=== PATIENT | female | born 1930 | race Caucasian/White ===

== ENCOUNTER → 2016-11-27 | Outpatient (CLI) | payer MEDICARE, BC ==
[2016-11-27 13:19] VITALS: BP 185/105; PULSE 78; RESP 16; TEMP 97.8
--- NOTE | 2016-11-28 11:48 | P.PN ---
Subjective This is follow-up visit for this patient with a history of severe and chronic neck pain and low back pain secondary to lumbar degenerative disc disease, and lumbar spondylosis, and cervical spondylosis and cervical degenerative disc disease , and is currently on pain medications 1-fentanyl patch 25 g every 72 hours 2- oxycodone 10 every 6 hours 3-Neurontin 200 mg twice a day Patient denies any side effects of the medication, denies excessive drowsiness or sleepiness, denies suicidal ideation, and reports that the current pain medication is NOT helping To control the pain and improve activity of daily living Patient had a new MRI of the cervical spine showed postsurgical changes and cervical degenerative disc disease and cervical facet arthropathy Physical Examinations : 1-Constitutiona : Cooperative , not in acute distress . 2-HEENT : nech ; supple , no Lymphadenopathy , no Thyromegaly , normal thyroid size . eyes : no ptosis , no icterus, no photophobia . ENT : normal of hearing , normal oropharynx , no Thrush . 3- Respiratory : Chest clear to auscultations Bilaterally , no wheezing , no Rhonchi . 4- Cardiovascular : regular rate and rhythem , S1 , S2 , no S3 , no S4. 5- Gastrointestinal : abdomen soft no tenderness , bowel sounds positive all four quadrents , no organomegally . 6- Genitourinary : Defferred . 7- neurologic : Cranial nerve II to XII intact , no focal neurological deffecit . 8-psychatric : alert , oriented X 3 , appropriate affect , intact judgment and insight . 9-Lymphatic : no Lymphadenopathy . 10- musculoskeltal : exams of the cervical spine = motor strength normal bilateral upper extremities facet loading test cervical area positive. exams of the Lumber spine = motor strength lower extremities ,thigh and legs .3-4/5 deep tendon reflexes : normal Knee Jerk , normal ankle Jerk . lumber facet Loading Test positive strait leg raising test positive at 30 degree , RT ,LT , Fabere test positive RT and positive LT . 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 myelopathy , failed back surgery syndrome and lumbar area Chronic neck pain secondary to failed back surgery syndrome cervical area and cervical spondylosis with cervical facet arthropathy - diagnoses, prognosis, and treatment options including but not limited to physical therapy, surgical interventions, interventional therapies , and medication management including narcotics and adjuvant medication were discussed with the patient and all The questions answered -medication management = continual medication management from her primary care(Dr Brice ) -procedure= [place] patient to have diagnostic medial branch blocks cervical area C2/C3/C4/C5 bilaterally fits positive we'll proceed with the radiofrequency ablation of the medial branch cervical area, Objective - Vital Signs Vital signs: Vital Signs Temp 97.8 F 11/27/16 13:08 Pulse 78 11/27/16 13:08 Resp 16 11/27/16 13:08 BP 185/105 11/27/16 13:08 Pulse Ox Intake & Output 11/27/16 11/28/16 11/28/16 18:59 06:59 18:59 Weight 52.617 kg
== END | disposition home or self-care (01) ==
LOC: PNWHC3 12:50
PROVIDERS: ATTEND Specialist
DX: M51.36 Other intervertebral disc degeneration, lumbar region (principal); M47.816 Spondylosis without myelopathy or radiculopathy, lumbar region; M46.96 Unspecified inflammatory spondylopathy, lumbar region; M96.1 Postlaminectomy syndrome, not elsewhere classified; M47.892 Other spondylosis, cervical region; M46.92 Unspecified inflammatory spondylopathy, cervical region; M50.30 Other cervical disc degeneration, unspecified cervical region; Z79.899 Other long term (current) drug therapy
CPT/HCPCS: 99211

== ENCOUNTER 2017-01-01 07:12 | Day surgery (SDC) | payer MEDICARE, BC ==
[2016-12-28 11:06] VITALS: BMI 19.9
[~2017-01-01 07:12] MED LIST: LACTATED RINGERS 1,000 ML IV SCH
[2017-01-01] MEDS ORDERED: LIDOCAINE 1% 20 ML VIAL (10MG/ML) FOR IV START INTRADERMA ONE (07:23)
[2017-01-01 07:32] VITALS: RESP 16; TEMP 97.8
[2017-01-01] MEDS: LABETALOL SYRINGE 5 MG/ML IVP ONE ×2 (07:43→08:22)
[2017-01-01] MEDS ORDERED: MIDAZOLAM 2 MG/2 ML VIAL ONE (08:25)
[2017-01-01] MEDS ORDERED: fentaNYL (PF) 50 MCG/ML 2 ML AMP ONE (08:25)
[2017-01-01] MEDS ORDERED: BUPIVACAINE (PF) 0.5% 30 ML VIAL ONE (08:25)
[2017-01-01] MEDS ORDERED: IV FLUID CONTINUATION 1,000 ML IV ONE (08:57)
--- NOTE | 2017-01-01 08:57 | P.PCN ---
Date of Procedure: 01/01/17 Preoperative Diagnosis: Cervical postlaminectomy syndrome Cervicogenic headache Cervical spondylosis without myelopathy Postoperative Diagnosis: Same as above Procedure(s) Performed: Bilateral cervical medial branch block for C2, and C3 plus third occipital nerve block bilaterally under fluoroscopic guidance Anesthesia: MAC Surgeon: Renetta Azevedo Condition: stable Disposition: PACU Description of Procedure: The patient was seen in preop holding area consent was obtained. The patient is mostly in the back of her head in the occipital area and also the upper part of her neck the pain is worse on the right side than the left side. I reviewed her MRI and it looks like she has cervical fusion from C3 to C6 and over lordosisbetween C2 and C3. She was brought into the procedure room and placed in the supine position. Skin was prepped with DuraPrep and draped in a sterile manner. Lidocaine 1% was used to numb the skin up at the target points that were chosen as follows: C2 and C3 medial branches the target points were the center of the trapezoid shaped cervical articular pillars and for the third occipital nerve the target point was at the center of the joint line between C2 and C3. I used 25-gauge 3-1/2 inch Quincke spinal needle for this procedure and after contacting bone at the target points mentioned I injected 0.5 MLS of Marcaine 0.5% at each target point. I did not use steroids for this procedure. The patient was given only 1 mg of IV Versed and 50 g of fentanyl IV for sedation. She has poorly controlled hypertension and had to give her 10 mg of labetalol preoperatively I then asked her to take her oral antihypertensive medication at home . she's been out of control her anti HTN medications for 3 days now she states. The procedure will be repeated one more time however the patient states that she had RFA before which did not help her pain.
--- NOTE | 2017-01-01 09:06 | FL ---
FLUOROSCOPY 12 seconds of fluoroscopy time were utilized during Pain Injection. 7 images document the procedure.
[2017-01-01 09:21] VITALS: BP 179/99; PULSE 75
== END 2017-01-01 09:43 | disposition home or self-care (01) ==
LOC: ORPAIN 07:12
PROVIDERS: ATTEND Anesthesiology
DX: M96.1 Postlaminectomy syndrome, not elsewhere classified (principal); R51 Headache; M47.812 Spondylosis without myelopathy or radiculopathy, cervical region; I10 Essential (primary) hypertension; Z88.5 Allergy status to narcotic agent
CPT/HCPCS: 64490; 64491; 64492; J2250; J3010

== ENCOUNTER 2017-02-07 08:06 | Day surgery (SDC) | payer MEDICARE, BC ==
[2017-02-06 08:50] VITALS: BMI 20.7
[~2017-02-07 08:06] MED LIST changes: +LACTATED RINGERS 1,000 ML IV ONE; -LACTATED RINGERS 1,000 ML IV SCH
[2017-02-07 08:59] VITALS: RESP 16; TEMP 97.5
[2017-02-07] MEDS ORDERED: LIDOCAINE 1% 20 ML VIAL (10MG/ML) FOR IV START INTRADERMA ONE (09:19)
[2017-02-07] MEDS ORDERED: DEXAMETHASONE SOD PHOS (MDV) 100 MG/10 ML VIAL ONE (09:24)
[2017-02-07] MEDS ORDERED: fentaNYL (PF) 50 MCG/ML 2 ML AMP ONE (09:24)
[2017-02-07] MEDS ORDERED: MIDAZOLAM 2 MG/2 ML VIAL ONE (09:24)
[2017-02-07] MEDS ORDERED: BUPIVACAINE (PF) 0.5% 30 ML VIAL ONE (09:24)
[2017-02-07] MEDS ORDERED: IV FLUID CONTINUATION 1,000 ML IV ONE (10:04)
--- NOTE | 2017-02-07 10:08 | P.PCN ---
Date of Procedure: 02/07/17 Procedure(s) Performed: PREOPERATIVE DIAGNOSIS: Cervical Spondylosis with Facet Arthropathy.without myelopathy. Cervicogenic headache. Postlaminectomy pain syndrome and cervical area POSTOPERATIVE DIAGNOSIS: Same as preoperative diagnosis. PROCEDURES: Diagnostic bilateral C2-3 . C3-4 medial branch blocks, with fluoroscopic guidance. Bilateral third occipital nerve block under fluoroscopy guidance ANESTHESIA: Local with 1% lidocaine 6 ml ; IV sedation with Versed 1 mg and fentanyl 100 g. EBL: Minimal PROCEDURE INDICATION: The patient with neck pain secondary to cervical arthropathy unresponsive to more conservative treatments. PROCEDURE DESCRIPTION / TECHNIQUE: The patient was seen and identified in the preoperative area. Risks, benefits, complications, and alternatives were discussed with the patient, the patient agreed to proceed with the procedure and signed the consent. IV was started. Vital signs remained stable throughout the procedure. Patient was taken to the OR and time out was completed. The patient was placed in the prone position on the procedure table. A pillow was placed under the patients chest to increase the cervical interlaminar space. The cervical area was prepped and draped in the usual sterile fashion. Critical pause was taken. Vital signs were closely monitored during the procedure. Conscious sedation was used during the procedure to decrease patients anxiety. Using cross-table lateral fluoroscopy, the centroid of the trapezoid of right C2 , C3 was identified, marked, and localized with 1% lidocaine 1 ml at each level for skin and Sub Q infiltrations . Subsequently, a 22 G 2 spinal needle was advanced guided by fluoroscopy to the centroid of the trapezoid of Right C2 , C3, . [place] tip position was confirmed at the centroid of the trapezoids of Right C2 , C3 with anteroposterior fluoroscopy. Subsequently, 1 ml of preservative-free Bupivacaine 0.5% mixed with Dexamethasone 5 mg and half ml of the mixture was injected after negative aspiration for blood and CSF. [place] was then removed intact the same procedure was repeated at the left C2-3 , C3-4 levels. then after that , I did the right side third occipital nerve block ,by placing a 22-gauge Quincke-type needle ,at the center of the facet joint, that is formed between the C2 and C3 vertebral , and I placed the needle ,at the center of the joint, then after needle position confirmed with AP and lateral view , and after negative aspiration for heme, and CSF, and there was no paresthesia , half cc of Marcaine 0.5% injected after negative aspiration , and then the same procedure repeated for the left side ,and I did the left third occipital nerve, the needle was removed and the neck area cleaned and Band-Aid applied, and tolerated the procedure well ,without any acute complications. COMPLICATIONS: No acute complications. COMMENTS: DISPOSITION / PLANS: The patient was placed in a supine position and transferred to the recovery area in a stable condition for observation and was discharged from the recovery room after meeting discharge criteria. Home discharge instructions given to the patient by the staff. The patient was reexamined prior to discharge. The patient will schedule a follow up in the clinic in 2-4 weeks.
--- NOTE | 2017-02-07 10:20 | FL ---
Fluoroscopy HISTORY: Pain 17 seconds fluoroscopy time supplied to the referring clinician. 5 intraoperative C-arm images docum ent the procedure. See dictated report from anesthesia.
[2017-02-07 10:23] VITALS: BP 141/85; PULSE 84
== END 2017-02-07 10:43 | disposition home or self-care (01) ==
LOC: ORPAIN 08:06
PROVIDERS: ATTEND Specialist
DX: M47.812 Spondylosis without myelopathy or radiculopathy, cervical region (principal); M46.92 Unspecified inflammatory spondylopathy, cervical region; R51 Headache; M96.1 Postlaminectomy syndrome, not elsewhere classified; Z91.041 Radiographic dye allergy status
CPT/HCPCS: 99152; 99153; 64450; 64490; 64491; J2250; J3010; J1100

== ENCOUNTER 2017-03-26 06:09 | Day surgery (SDC) | payer MEDICARE, BC ==
[2017-03-23 08:40] VITALS: BMI 20.9
[~2017-03-26 06:09] MED LIST changes: -LACTATED RINGERS 1,000 ML IV ONE; +LACTATED RINGERS 1,000 ML IV SCH
[2017-03-26 07:24] VITALS: RESP 18; TEMP 97.8
[2017-03-26] MEDS ORDERED: DEXAMETHASONE SOD PHOS (MDV) 100 MG/10 ML VIAL ONE (07:50)
[2017-03-26] MEDS ORDERED: MIDAZOLAM 2 MG/2 ML VIAL ONE (07:50)
[2017-03-26] MEDS ORDERED: fentaNYL (PF) 50 MCG/ML 2 ML AMP ONE (07:50)
[2017-03-26] MEDS ORDERED: BUPIVACAINE (PF) 0.5% 30 ML VIAL ONE (07:50)
[2017-03-26] MEDS ORDERED: IV FLUID CONTINUATION 1,000 ML IV ONE (08:30)
--- NOTE | 2017-03-26 08:34 | P.PCN ---
Date of Procedure: 03/26/17 Preoperative Diagnosis: Postoperative Diagnosis: Procedure(s) Performed: PREOPERATIVE DIAGNOSIS:1- Cervical spondylosis with Facet Arthropathy without myelopathy. 2-cervicogenic headache POSTOPERATIVE DIAGNOSIS: Same as preoperative diagnoses PROCEDURES: Radiofrequency thermocoagulation, Right C2-3,and Right C3-4, medial branch with Fluroscopy [place]. Radiofrequency thermocoagulation right third occipital nerve with the fluoroscopy guidance. (total of 3 levels ) ANESTHESIA: Local with 1% lidocaine 3 ml ; IV sedation with fentanyl 100 mcg and Versed 1 mg . EBL: Minimal PROCEDURE INDICATION: The patient with neck pain secondary to cervical arthropathy who had more than 50% relief of her pain with previous diagnostic cervical medial branch block. PROCEDURE DESCRIPTION / TECHNIQUE: The patient was seen and identified in the preoperative area. Risks, benefits, complications, and alternatives were discussed with the patient, the patient agreed to proceed with the procedure and signed the consent. IV was started. Vital signs remained stable throughout the procedure. Patient was taken to the OR and time out was completed. The patient was placed in the prone position on the procedure table. A pillow was placed under the patients chest to increase the cervical interlaminar space. The cervical area was prepped and draped in the usual sterile fashion. Critical pause was taken. Vital signs were closely monitored during the procedure. Conscious sedation was used during the procedure to decrease patients anxiety. Using cross-table lateral fluoroscopy, the centroid of the trapezoid of Right C2 , C3 were identified, marked, and localized with 1% lidocaine. Subsequently , a 20 [id number] radiofrequency cannula with a 10-mm active tip was advanced guided by fluoroscopy to the centroid of the trapezoid of Right C2, C3 and third needl placed between the Right C2 and C3 vertebra (in the middle of the facet joints formed between Right C2 and C3 , ) . Needle tip position was confirmed at the centroid of the trapezoids of right C2 ,C3,and the third occipital nerve , with anteroposterior fluoroscopy. Each site then underwent sensory testing at 50 Hz and 0 to 1 volt and motor testing at 2 Hz and 0 to 3 volt with local stimulation, but no radicular symptoms down the arm. Thereafter Right C2 ,C3, and the right third occipital nerve sites underwent radiofrequency thermocoagulation at 80 degrees celsius for 90 seconds after injecting 0.5 ml of PF lidocaine 1%. After thermocoagulation, 1 ml of the block solution containing Dexamethasone 10 mg mg and 3 mL of preservative-free Marcaine 0.5% was injected at the Right C2 ,C3,and righ third occipital nerve levels after negative aspiration of CSF and blood and with no paresthesias. Cannulas were retracted while injecting lidocaine 1% until the needle is out. Skin was cleansed and bandages were applied. COMPLICATIONS: No acute complications. COMMENTS: DISPOSITION / PLANS: The patient was placed in a supine position and transferred to the recovery area in a stable condition for observation and was discharged from the recovery room after meeting discharge criteria. Home discharge instructions given to the patient by the staff. The patient was reexamined prior to discharge. The patient will schedule a follow up in the clinic in 2-4 weeks. Implants: Indications for Procedure: Operative Findings: Description of Procedure:
--- NOTE | 2017-03-26 08:52 | FL ---
Fluoroscopy HISTORY: Pain 11 seconds fluoroscopy time supplied to the referring clinician. 2 intraoperative C-arm images docum ent the procedure. See dictated report from anesthesia.
[2017-03-26 08:56] VITALS: BP 136/77; PULSE 77
== END 2017-03-26 09:17 | disposition home or self-care (01) ==
LOC: ORPAIN 06:09
PROVIDERS: ATTEND Specialist
DX: M47.812 Spondylosis without myelopathy or radiculopathy, cervical region (principal); M46.92 Unspecified inflammatory spondylopathy, cervical region; I10 Essential (primary) hypertension; Z91.041 Radiographic dye allergy status
CPT/HCPCS: 64640; 64633; 64634; 99152; 99153; J2250; J3010; J1100

== ENCOUNTER → 2017-05-14 | Outpatient (CLI) | payer MEDICARE, BC ==
[2017-05-14 11:26] VITALS: RESP 18
[2017-05-14 11:29] VITALS: BP 131/78; PULSE 77; TEMP 98.4
--- NOTE | 2017-05-14 11:48 | P.PN ---
Progress Note - Text Patient returns for followup for chronic neck pain with radiation to the head. Patient recently underwent right cervical RFA, which provided some relief for interval since procedure, and patient is now requesting procedures for her low back, where she has had previous laminectomy and hardware placement. Patient continues on fentanyl patch and oxyIR medications for pain from PCP with good relief. Patient denies adverse drug effects from medications. Today, pt denies new-onset weakness, bowel/bladder incontinence, or any other signs or symptoms of cauda equina syndrome. There are no signs of acute intoxication, and no indications of medication diversion or overuse. In addition to above, 13-point review of systems is also negative for chest pain , shortness of breath, changes in vision, changes in hearing, new onset weakness , abdominal pain, diarrhea, extreme fatigue, malaise, fever, skin changes, homicidal or suicidal ideation, or bowel or bladder incontinence. Vital Signs: Reviewed in EMR Gen: WDWN, AAOx3, NAD HEENT: NCAT, EOMI, hearing grossly normal Pulm: resp unlabored Abd: soft, NT, ND Neck: supple, trachea midline ROM in flexion cervical spine: reduced ROM in extension cervical spine: reduced Cervical paravertebral tenderness: + Cervical Facet tenderness: + L > R Spurling's: neg Upper extremity: decreased block hacker strength secondary to pain LUE 4/5 ROM lumbar spine: reduced in both flexion/extension +facet loading bilateral, L > R Neuro: CN II-XII grossly intact, muscle strength lower extremities PRESERVED Imaging: Reviewed in EMR Assessment: 1. cervical spondylosis without myelopathy 2. cervicogenic headache 3. chronic pain syndrome 4. lumbar spondylosis 5. lumbar PLPS Plan: 1. Explanation: Opioid and psychological risk scores were reviewed. Diagnoses , prognoses, and multiple treatment options including but not limited to physical therapy, interventional therapies, adjuvant medical therapies, narcotic medication therapies, and surgery were discussed with the patient and all questions were answered to the patient's satisfaction. 2. Opioid agreement: no opioids prescribed today 3. Counseling: The patient was counseled extensively on BODY MASS INDEX, EXERCISE. Specifically, the patient was instructed regarding the importance of weight control, and exercise in the context of both chronic pain and overall health. 4. Procedures: none for now 5. Consultations: None 6. Investigations: CT scan lumbar spine without contrast (patient previously had MRI with contrast and has had significant weakness in her legs since); this may not have caused the issue, but patient does not want any more contrast. 7. Medications: none for now 8. Disposition: f/u for re-eval 6 weeks PQRS measures: 1-Patient's medications are documented in the chart. 2-Tobacco use is negative 3-Patient has had a pneumococcal vaccine. 4-Advanced care planning discussed, patient unable to give. 5-Opioid contract NOT signed with the patient. 6-Pain positive, follow-up visit or procedure scheduled 7-Patient's blood pressure measured and documented, and WNL. 8-Patient's weight was measured, and body mass index within the normal limits 9-Patient WAS NOT identified as an unhealthy alcohol user.
== END ==
LOC: PNWHC3 10:52
PROVIDERS: ATTEND Anesthesiology
DX: M47.812 Spondylosis without myelopathy or radiculopathy, cervical region (principal); M47.816 Spondylosis without myelopathy or radiculopathy, lumbar region; R51 Headache; G97.1 Other reaction to spinal and lumbar puncture; Z79.891 Long term (current) use of opiate analgesic
CPT/HCPCS: 99211

== ENCOUNTER → 2017-05-18 | Outpatient (CLI) | payer MEDICARE, BC ==
--- NOTE | 2017-05-18 08:46 | CT ---
EXAMINATION TYPE: CT lumbar spine wo con DATE OF EXAM: 05/18/2017 COMPARISON: NONE HISTORY: 87-year-old female with post laminectomy syndrome TECHNIQUE: Contiguous axial scanning of the lumbar spine without IV contrast. Coronal and sagittal re constructions performed. CT DLP: 375.9 mGycm Automated exposure control for dose reduction was used. FINDINGS: Exam limitations due to osteopenia and extensive streak and beam hardening artifact from the patient' s orthopedic hardware. Postsurgical changes of L1-S1 posterior fusion. There are corresponding laminectomies and a satisfact ory lateral osseous fusion. This involves a fixed levoconvex scoliosis. There is still some joint seen along the posterior elemen ts at L5-S1 but there are some areas of bony bridging present. Of note, the right S1 transpedicular screw extends through the right lateral aspect of the L5-S1 disc interspace otherwise, the orthopedic hardware appears largely uncomplicated. There is severe disc/endplate degenerative change above the fusion at T12-L1 with posterior disc oste ophyte complex and essentially dated kyphosis here. There is mild right neural foraminal stenosis wit hout significant spinal canal stenosis. At L1-L2, there is dorsal decompression of the thecal sac without significant neural foraminal stenos is. At L2-L3, there is dorsal decompression of the thecal sac with minimal bilateral inferior neuroforami nal narrowing. At L3-L4, there is dorsal decompression of the thecal sac with minimal inferior neural foraminal narr owing on the left and mild neural foraminal stenosis on the right. At L4-L5, there is dorsal decompression of the thecal sac but with moderate bilateral neuroforaminal stenosis. Disc osteophyte complex may abut both exiting L4 nerve roots. At L5-S1, dorsal decompression of the thecal sac with severe left and moderate to severe right neural foraminal stenosis. There may be impingement of both exiting L5 nerve roots. IMPRESSION: 1. STATUS POST L1-S1 POSTERIOR AND LATERAL OSSEOUS FUSION WITH LAMINECTOMIES. 2. THERE IS A FIXED LEVOCONVEX SCOLIOSIS SECONDARY TO THE FUSION. NOTE THAT THE RIGHT S1 TRANSPEDICUL AR SCREW EXTENDS THROUGH THE RIGHT LATERAL L5-S1 DISC SPACE. THERE IS PARTIAL BONY ANKYLOSIS ALONG TH E POSTERIOR ELEMENTS AT L5-S1. 3. SEVERE DISC/ENDPLATE DEGENERATIVE CHANGE ABOVE THE FUSION AT T12-L1 BUT WITH ONLY MINIMAL INFERIOR FORAMINAL NARROWING ON THE RIGHT HERE. 4. AT L4-L5, THERE IS MODERATE BILATERAL NEURAL FORAMINAL STENOSIS AND DISC OSTEOPHYTE COMPLEX MAY AB UT BOTH EXITING L4 NERVE ROOTS. 5. L5-S1, THERE IS SEVERE LEFT AND MODERATE TO SEVERE RIGHT NEUROFORAMINAL STENOSIS WITH POSSIBLE IMP INGEMENT OF BOTH EXITING L5 NERVE ROOTS.
== END | disposition home or self-care (01) ==
LOC: RADCTMAIN 07:43
DX: M99.73 Connective tissue and disc stenosis of intervertebral foramina of lumbar region (principal); M25.78 Osteophyte, vertebrae; M41.86 Other forms of scoliosis, lumbar region; M43.27 Fusion of spine, lumbosacral region; Z98.890 Other specified postprocedural states; Z98.1 Arthrodesis status
CPT/HCPCS: 72131

== ENCOUNTER → 2017-07-02 | Outpatient (CLI) | payer MEDICARE, BC ==
[2017-07-02 14:22] VITALS: BP 132/88; PULSE 78; RESP 16; TEMP 98.3
--- NOTE | 2017-07-02 14:41 | P.PN ---
Progress Note - Text Patient returns for followup for chronic neck pain with radiation to the head and got good relief from previous cervical RFA. Patient recently underwent CT scan of L-spine, results below. Patient continues on fentanyl patch and oxyIR medications for pain from PCP with good relief. Patient denies adverse drug effects from medications. Today, pt denies new-onset weakness, bowel/bladder incontinence, or any other signs or symptoms of cauda equina syndrome. There are no signs of acute intoxication, and no indications of medication diversion or overuse. In addition to above, 13-point review of systems is also negative for chest pain , shortness of breath, changes in vision, changes in hearing, new onset weakness , abdominal pain, diarrhea, extreme fatigue, malaise, fever, skin changes, homicidal or suicidal ideation, or bowel or bladder incontinence. Vital Signs: Reviewed in EMR Gen: WDWN, AAOx3, NAD HEENT: NCAT, EOMI, hearing grossly normal Pulm: resp unlabored Abd: soft, NT, ND Neck: supple, trachea midline ROM lumbar spine: reduced in both flexion/extension +facet loading bilateral, L > R neg SLR Neuro: CN II-XII grossly intact, muscle strength lower extremities reduced secondary to opain Imaging: Computed tomography scan the lumbar spine demonstrates posterior changes of L1 to S1 posterior fusion with corresponding laminectomies and decompression. There is a fixed levoconvex scoliosis. At the L2-L3 level there is dorsal decompression of the thecal sac with minimal bilateral inferior neural foraminal narrowing. The L3-L4 level there is a similar dorsal decompression of thecal sac with minimal neural foraminal narrowing. At the L4- L5 level there is dorsal decompression of thecal sac with moderate bilateral neural foraminal stenosis. There is a disc osteophyte complex that may be abutting both the exiting L4 nerve roots. At the L5-S1 level there is dorsal decompression of thecal sac with severe left and moderate to severe right neural foraminal stenosis. There may be impingement of both exiting L5 nerve roots. Assessment: 1. cervical spondylosis without myelopathy 2. cervicogenic headache 3. chronic pain syndrome 4. lumbar spondylosis 5. lumbar PLPS Plan: 1. Explanation: Opioid and psychological risk scores were reviewed. Diagnoses , prognoses, and multiple treatment options including but not limited to physical therapy, interventional therapies, adjuvant medical therapies, narcotic medication therapies, and surgery were discussed with the patient and all questions were answered to the patient's satisfaction. 2. Opioid agreement: no opioids prescribed today 3. Counseling: The patient was counseled extensively on BODY MASS INDEX, EXERCISE. Specifically, the patient was instructed regarding the importance of weight control, and exercise in the context of both chronic pain and overall health. 4. Procedures: caudal IGLESIA 5. Consultations: None 6. Investigations: none 7. Medications: none for now 8. Disposition: f/u for re-eval 6 weeks PQRS measures: 1-Patient's medications are documented in the chart. 2-Tobacco use is negative 3-Patient has had a pneumococcal vaccine. 4-Advanced care planning discussed, patient unable to give. 5-Opioid contract NOT signed with the patient. 6-Pain positive, follow-up visit or procedure scheduled 7-Patient's blood pressure measured and documented, and WNL. 8-Patient's weight was measured, and body mass index within the normal limits 9-Patient WAS NOT identified as an unhealthy alcohol user.
== END | disposition home or self-care (01) ==
LOC: PNWHC3 13:58
PROVIDERS: ATTEND Anesthesiology
DX: M47.812 Spondylosis without myelopathy or radiculopathy, cervical region (principal); M47.816 Spondylosis without myelopathy or radiculopathy, lumbar region; G89.4 Chronic pain syndrome; G97.1 Other reaction to spinal and lumbar puncture; R51 Headache
CPT/HCPCS: 99211

== ENCOUNTER → 2018-03-25 | Outpatient (CLI) | payer MEDICARE, BC ==
[2018-03-25 13:24] VITALS: BP 163/115; PULSE 92; RESP 16
--- NOTE | 2018-03-25 16:10 | P.PAINPG ---
Subjective Progress Note Date: 03/25/18 This is a follow-up visit for this 87 years old female with a chronic history of severe neck pain and low back pain, treated her in the past for her neck pain we did radiofrequency ablation of the medial branch cervical area, the procedure was done more than a year ago, currently she is complaining of severe low back pain which is interfering with her quality of life and the pain is constant and increases with any activity, description and history of lumbar laminectomy and fusion surgery done more than 5 years ago, and she continued to have severe low back pain with radiation to the lower extremity, she had computed tomography scan of the lumbar spine done last year, and should it showed severe degenerative disc disease , and sign of laminectomy surgery, currently she is wheelchair-bound and she had no ability to ambulate because of intensity of the pain Objective - Vital Signs Vital signs: Vital Signs Temp Pulse 92 03/25/18 13:20 Resp 16 03/25/18 13:20 BP 163/115 03/25/18 13:20 Pulse Ox 98 03/25/18 13:20 Intake & Output 03/24/18 03/25/18 03/25/18 18:59 06:59 18:59 Weight 55.338 kg - Exam Physical Examinations : 1-Constitutiona : Cooperative , not in acute distress . 2-HEENT : nech ; supple , no Lymphadenopathy , normal thyroid size . eyes : no ptosis , no icterus , no photophobia . ENT : normal of hearing , normal oropharynx , no Thrush . 3- Respiratory : Chest clear to auscultations Bilaterally , no wheezing , no Rhonchi . 4- Cardiovascular : regular rate and rhythem , S1 , S2 , no S3 , no S4. 5- Gastrointestinal : abdomen soft no tenderness , bowel sounds , no organomegally . 6- Genitourinary : Defferred . 7- neurologic : Cranial nerve II to XII intact , no focal neurological deffecit . 8-psychatric : alert , oriented X 3 , appropriate affect , intact judgment and insight . 9-Lymphatic : no Lymphadenopathy . 10- musculoskeltal : cervical spine = motor stregnth in the deltoid and biceps, motor stregnth biceps and the wrist extensors (C6) . motor stregnth in the triceps muscle . deep tendon reflexes normal at the biceps Right , Left normal at the brachioradia Right , Left Normal at the triceps Right ,Left cervical facet loading test positive. , Lumber spine = normal moter stegnth lower extremities ,thigh and legs .3/5 deep tendon reflexes : normal Knee Jerk , normal ankle Jerk . 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 Patient will be good candidate to have caudal epidural steroid injection with lysis of epidural adhesions Patient currently on the fentanyl patch 75 g every 72 hours and she is on OxyContin 10 mg every 8 hours, a day he denies any side effects of the medication but she up with the current medication is not helping enough to control her pain I recommend to start patient on Lyrica 25 mg twice a day to be increased as tolerated Time with Patient: Less than 30 PQRS Measure Charge Sheet Measure #130: Documentation of Current Meds in Medical Chart: Patient's medications documented in chart Measure #226: Tobacco Use: Screen & Cessation Intervention: Pt not a tobacco user Measure #111: Pneumonia Vaccination: Pneumococcal vaccine administered or previously received Measure #47: Advance Care Plan: Advance care planning discussed & documented, plan or surrogate given Measure #412: Opioid Treatment Agreement: No documentation of signed opioid treatment agreement Measure #408: Opioid Therapy Follow-up Evaluation: Patient had NO f/u eval minimum every 3 months during opioid therapy Measure #317: Preventitive Care & Scrn High Bld Press & F/U: Pre-hypertensive or hypertensive BP documented, pt will f/u with PCP Measure #128: Body Mass Index (BMI) Screening & Follow-up: BMI documented ABOVE normal parameters - f/u documented Measure #131: Pain Assessment & Follow-up: Pain positive & plan documented, Follow-up scheduled Measure #431: Unhealthy Alcohol Use Preventative Care & Scrn: Patient not identified as an unhealthy alcohol user PQRS Narrative: Smoking Status Former smoker Do You Want the Pneumonia Vaccine Up to Date Vaccine AT THIS TIME? Blood Pressure 163/115 Pain Intensity [Lower Back] 8 Scale Used Numeric (1 - 10) Hx Alcohol Use (MH) Yes Home Medications: Ambulatory Orders Cholecalciferol [Vitamin D3] 1,000 unit PO WEEKLY 03/05/15 Levothyroxine Sodium [Synthroid] 100 mcg PO DAILY 12/10/14 Olmesartan [Benicar] 20 mg PO DAILY 12/10/14 fentaNYL 75MCG/HR PATCH [Duragesic 75Mcg/Hr Patch] 1 patch TRANSDERM Q72H Ascorbic Acid [Vitamin C] 500 mg PO DAILY 06/14/16 Calcium Carbonate/Vitamin D3 [Calcium 600-Vit D3 200 Tablet] 1 each PO DAILY 04/22 oxyCODONE HCL [OxyCONTIN] 10 mg PO Q8H PRN 11/27/16 Ergocalciferol [Vitamin D2] 50,000 unit PO Q7D 12/17/17 Pregabalin [Lyrica] 25 mg PO BID 03/25/18 Controlled Substance Measures - Controlled Substance Measures Is patient prescribed a controlled substance at discharge?: No When asked, does pt state using other controlled substances?: No If prescribed controlled substance>3 days was MAPS reviewed?: No If Rx opioid, was Start Talking consent form obtained?: No If opioid is for acute pain is fill amount 7 days or less?: No Was information provided regarding opioid addiction?: No
== END | disposition home or self-care (01) ==
LOC: PNWHC3 12:08
PROVIDERS: ATTEND Specialist
DX: G89.29 Other chronic pain (principal); M96.1 Postlaminectomy syndrome, not elsewhere classified; M47.812 Spondylosis without myelopathy or radiculopathy, cervical region; M54.2 Cervicalgia; Z87.891 Personal history of nicotine dependence; Z79.899 Other long term (current) drug therapy; Z79.891 Long term (current) use of opiate analgesic
CPT/HCPCS: 99211

== ENCOUNTER 2018-04-01 08:29 | Day surgery (SDC) | payer MEDICARE, BC ==
[2018-03-26 11:31] VITALS: BMI 20.9
[2018-04-01] MEDS ORDERED: LACTATED RINGERS 1,000 ML IV ONE (08:59)
[2018-04-01 09:08] VITALS: TEMP 98
[2018-04-01] MEDS ORDERED: LIDOCAINE 1% 20 ML VIAL (10MG/ML) FOR IV START INTRADERMA ONE (09:08)
--- NOTE | 2018-04-01 09:51 | P.OP ---
Date of Procedure: 04/01/18 Surgeon: Bert Reyes Description of Procedure: Procedure= caudal epidural steroid injection with lysis of epidural adhesions under fluoroscopy guidance. Preoperative diagnosis=1-failed back surgery syndrome lumbar area. 2 lumbar degenerative disc disease 3-lumbar radiculopathy Postoperative diagnosis= same Surgeon: Bert Reyes MD Indication for procedure: This is a pleasant 88 showed woman with a history of intractable back pain and leg pain. She's had previous back surgery. She presents today for caudal epidural steroid injection with lysis of adhesions. Anesthesia= IV sedation with 1 mg Versed and 50 mcg fentanyl , and local infiltration with lidocaine 1% 3 mL for skin and subcutaneous tissue infiltrations. Fluoroscopy time= 3 seconds Description of the procedure= procedure risk and benefits discussed with the patient, including but not limited to risk of infection and bleeding and ALLERGIC reaction to the medication and no complete pain relief discussed with the patient and he, she agreed with preceding. patient taken to the operating room, placed in prone position standard monitors applied, then after induction of anesthesia the lumbar and the caudal Area prepped with chlorhexidine X3 , then the under fluoroscopy guidance, local infiltration of the skin and subcu tissuel at the caudal hiatus area, then a 17-gauge Touhy needle advanced slowly under fluoroscopy and passed through the cauda hiatus and advanced to the epidural space, there was positive loss of resistance to normal saline, no heme, no paresthesia, no cerebrospinal fluid, then after negative aspiration Omnipaque 180 mg per mL and 3 mL injected that showed possible spread in the epidural space, no intrathecal spread, then 22 daniel Racz catheter advanced slowly through the needle up to L 4-5 interlaminar space , and I was able to break the scar tissue and then inject a mixture of lidocaine 1% 2 mL +4 mL of preservative-free normal saline +40 mg of depomedrol mixed together , and injected epidurally after negative aspiration patient tolerated the procedure well without any complication and patient will follow up with up in the pain clinic within 3 weeks.
[2018-04-01 10:00] VITALS: RESP 16
[2018-04-01] MEDS ORDERED: IV FLUID CONTINUATION 1,000 ML IV ONE (10:05)
[2018-04-01 10:15] VITALS: BP 153/91; PULSE 75
--- NOTE | 2018-04-01 11:24 | FL ---
Fluoroscopy HISTORY: Pain 5 seconds fluoroscopy time supplied to the referring clinician. 1 intraoperative C-arm images docume nt the procedure. See dictated report from anesthesia.
== END 2018-04-01 10:44 | disposition home or self-care (01) ==
LOC: ORPAIN 08:29
PROVIDERS: ATTEND Pain Medicine Pain Medicine
DX: G89.29 Other chronic pain (principal); M96.1 Postlaminectomy syndrome, not elsewhere classified; M51.16 Intervertebral disc disorders with radiculopathy, lumbar region; G96.12 Meningeal adhesions (cerebral) (spinal); M47.812 Spondylosis without myelopathy or radiculopathy, cervical region; Z87.891 Personal history of nicotine dependence; Z79.891 Long term (current) use of opiate analgesic; Z79.899 Other long term (current) drug therapy; Z91.041 Radiographic dye allergy status; Z79.890 Hormone replacement therapy
CPT/HCPCS: 62264; J2250; J1030; J3010

== ENCOUNTER 2018-05-14 08:56 | Day surgery (SDC) | payer MEDICARE, BC ==
[2018-05-07 09:03] VITALS: BMI 20.9
[2018-05-14 09:26] VITALS: RESP 16; TEMP 97.9
--- NOTE | 2018-05-14 10:07 | P.PCN ---
Date of Procedure: 05/14/18 Surgeon: Renetta Azevedo Pathology: none sent Condition: stable Disposition: PACU Description of Procedure: PREOP DIAGNOSIS: Lumbar postlaminectomy syndrome. POSTOP DIAGNOSIS: Lumbar postlaminectomy syndrome. PROCEDURE: Caudal epidural steroid injection with epidurolysis and epidurogram under fluoroscopic guidance ANESTHESIA: Local with 1% lidocaine; IV moderate conscious sedation EBL: Minimal. PROCEDURE INDICATION: The patient with post-laminectomy syndrome with low back pain and radiculopathy radiating down in both legs, here for a caudal epidural steroid injection with epidurolysis. PROCEDURE DESCRIPTION: The patient was seen in the preoperative holding area consent was obtained then he was brought into the procedure room and placed in prone position. Skin was prepped with ChloraPrep and draped in a sterile manner. Lidocaine 1% was used to numb the skin up at the target point that was chosen as follows: The lateral view of fluoroscopy was used to identify the sacral hiatus and then after localizing the skin with lidocaine 1% I used 18- gauge epidural needle with a plastic sheath to go through the sacral hiatus and into the sacral canal and then injected 1 mL of Omnipaque for verification of needle tip position. After that the metal core of the needle was taken out and the plastic sheath was kept in the sacral canal. Then Racz catheter was introduced through the plastic sheath and into the epidural space at the sacral canal using the AP view of fluoroscopy up to L5-S1 level then I injected 2 MLS of Omnipaque which showed limited spread in the epidural space and after few back and forth movements of the Racz catheter I was able to introduce the needle one level higher to the L4-5 level and then there was more spread of the Omnipaque after injecting 3 more mils of Omnipaque on the AP view of fluoroscopy. After that I injected 40 mg of Kenalog +2 MLS of Ropivacaine 0.5% +7 MLS of preservative-free normal saline to a total volume of 10 MLS in the epidural space. Patient tolerated procedure well. Of note: COMPLICATIONS: None. DISPOSITION / PLANS: The patient was placed in a supine position and transferred to the recovery area in a stable condition for observation and was discharged from the recovery room after meeting discharge criteria. Home discharge instructions given to the patient by the staff. The patient was reexamined prior to discharge. The patient will schedule a follow up in the clinic in 2-4 weeks.
[2018-05-14] MEDS ORDERED: IV FLUID CONTINUATION 1,000 ML IV ONE (10:22)
--- NOTE | 2018-05-14 10:37 | FL ---
Fluoroscopy HISTORY: Pain 14 seconds fluoroscopy time supplied to the referring clinician. 2 intraoperative C-arm images docum ent the procedure. See dictated report from anesthesia.
[2018-05-14 10:40] VITALS: BP 169/99; PULSE 77
== END 2018-05-14 10:55 | disposition home or self-care (01) ==
LOC: ORPAIN 08:56
PROVIDERS: ATTEND Anesthesiology
DX: M96.1 Postlaminectomy syndrome, not elsewhere classified (principal); I10 Essential (primary) hypertension; Z91.041 Radiographic dye allergy status
CPT/HCPCS: 62264; J2250; J3301; J3010; Q9966; C1894; 99152

== ENCOUNTER 2020-08-01 09:34 | Emergency (ER) | payer MEDICARE ==
[2020-08-01 09:42] VITALS: RESP 18
[2020-08-01] MEDS ORDERED: DOCUSATE 283 MG/5 ML ENEMA RECTAL STA (10:07)
--- NOTE | 2020-08-01 10:26 | ED ---
Abdominal Pain HPI - General Chief Complaint: Abdominal Pain Stated Complaint: Constipation Time Seen by Provider: 08/01/20 09:54 Source: patient, EMS, RN notes reviewed Mode of arrival: EMS Limitations: no limitations - History of Present Illness Initial Comments: This is an 89-year-old female presents emergency Department with chief complaint constipation. Patient states she's not been able to go in several days. Patient states she feels a stool at her rectum. Patient states that she is on chronic pain meds. Patient states that she has no fevers or chills she states she only has pain in her rectum. Patient states she has known hemorrhoids. No dysuria no hematuria. Patient offers no other complaints. - Related Data Home Medications Medication Instructions Recorded Confirmed Levothyroxine Sodium [Synthroid] 100 mcg PO DAILY 12/10/14 06/18/18 Olmesartan [Benicar] 20 mg PO DAILY 12/10/14 06/18/18 fentaNYL 75MCG/HR PATCH [Duragesic 1 patch TRANSDERM Q72H 12/10/14 06/18/18 75Mcg/Hr Patch] Ascorbic Acid [Vitamin C] 500 mg PO DAILY 06/14/16 06/18/18 oxyCODONE HCL [OxyCONTIN] 10 mg PO Q8H PRN 11/27/16 06/18/18 Pregabalin [Lyrica] 25 mg PO BID 03/25/18 06/18/18 Allergies Allergy/AdvReac Type Severity Reaction Status Date / Time MRI Contrast AdvReac Severe could not Uncoded 06/18/18 12:21 walk, very dry skin Review of Systems ROS Statement: Those systems with pertinent positive or pertinent negative responses have been documented in the HPI. ROS Other: All systems not noted in ROS Statement are negative. Past Medical History Past Medical History: GERD/Reflux, Hypertension, Osteoarthritis (OA), Thyroid Disorder Additional Past Medical History / Comment(s): CONSTIPATION, NECK AND BACK PAIN. varicose veins, gadolinium toxicity. History of Any Multi-Drug Resistant Organisms: None Reported Past Surgical History: Back Surgery, Hernia Repair, Joint Replacement, Tonsillectomy Additional Past Surgical History / Comment(s): rt knee replacement ,PAIN CLINIC PROCEDURES. [place] cataracts Past Anesthesia/Blood Transfusion Reactions: No Reported Reaction Past Psychological History: No Psychological Hx Reported Smoking Status: Never smoker Past Alcohol Use History: Daily Past Drug Use History: None Reported - Past Family History Sister(s) Family Medical History: Cancer Additional Family Medical History / Comment(s): LUNG CANCER General Exam Limitations: no limitations General appearance: alert, in no apparent distress Head exam: Present: atraumatic, normocephalic, normal inspection Neck exam: Present: normal inspection. Absent: tenderness, meningismus, lymphadenopathy Respiratory exam: Present: normal lung sounds bilaterally. Absent: respiratory distress, wheezes, rales, rhonchi, stridor Cardiovascular Exam: Present: regular rate, normal rhythm, normal heart sounds. Absent: systolic murmur, diastolic murmur, rubs, gallop, clicks GI/Abdominal exam: Present: soft, normal bowel sounds. Absent: distended, tenderness, guarding, rebound, rigid Rectal exam: Present: fecal impaction, hemorrhoids. Absent: normal inspection Course Vital Signs 08/01/20 09:36 Temperature 98.2 F Pulse Rate 91 Respiratory 18 Rate Blood Pressure 141/91 O2 Sat by Pulse 97 Oximetry Procedures - Rectal Disimpaction Consent Obtained: verbal consent Indication: fecal impaction Procedural Sedation: No Sedation/Analgesia: none Technique: manual disimpaction with gloved finger Result: significant stool output Complications: none Patient Tolerated Procedure: well, no complications Medical Decision Making - Medical Decision Making 89-year-old female presented for constipation. Patient noted to have large fecal impaction on exam. Patient was disimpacted and was able to pass a large amount of stool patient's symptoms have resolved. Disposition Clinical Impression: Constipation, Fecal impaction in rectum Disposition: HOME SELF-CARE Condition: Stable Instructions (If sedation given, give patient instructions): Constipation (ED) Additional Instructions: Please return to the Emergency Department if symptoms worsen or any other concerns. Is patient prescribed a controlled substance at d/c from ED?: No Referrals: Diamond Brice MD [Primary Care Provider] - 1-2 days Time of Disposition: 10:26
[2020-08-01 11:07] VITALS: BP 133/99; PULSE 98; TEMP 97.8
== END 2020-08-01 11:07 | disposition home or self-care (01) ==
LOC: EC 09:34
DX: K59.00 Constipation, unspecified (principal); I10 Essential (primary) hypertension; E07.9 Disorder of thyroid, unspecified; M54.2 Cervicalgia; M54.9 Dorsalgia, unspecified; Z79.899 Other long term (current) drug therapy; Z79.890 Hormone replacement therapy; Z91.041 Radiographic dye allergy status; Z96.651 Presence of right artificial knee joint
CPT/HCPCS: 99284

== ENCOUNTER 2020-09-08 13:34 | Inpatient (IN) | payer MEDICARE, BC ==
[2020-09-08] MEDS ORDERED: SODIUM CHLORIDE 0.9% 500 ML 500 ML IV STA (14:10)
--- NOTE | 2020-09-08 14:17 | ED ---
General Adult HPI - General Chief complaint: Weakness Stated complaint: Weakness Time Seen by Provider: 09/08/20 13:45 Source: patient, EMS, RN notes reviewed, old records reviewed Mode of arrival: EMS Limitations: no limitations - History of Present Illness Initial comments: This is an 89-year-old female who is brought into the emergency department acc ording to the EMS because of generalized weakness and a wet cough. Also he stated that the patient was somewhat unresponsive for the son at home prior to their arrival. Son has recently been exposed COVID and he has did not get any test results back recently. Patient herself says she has a cough but she does not feel weak and she does not have any shortness of breath or difficulty breathing. Patient denies any headache patient denies numbness weakness or lightheadedness. Patient denies any chest pain or palpitations. Patient denies any recent fever chills per patient denies abdominal pain patient denies nausea vomiting diarrhea. Patient denies any loss of taste per patient denies any swelling to her legs. - Related Data Home Medications Medication Instructions Recorded Confirmed fentaNYL 75MCG/HR PATCH [Duragesic 1 patch TRANSDERM Q72H 12/10/14 09/08/20 75Mcg/Hr Patch] Aspirin EC [Ecotrin Low Dose] 81 mg PO HS 09/08/20 09/08/20 Cetirizine HCl [Zyrtec] 10 mg PO DAILY 09/08/20 09/08/20 LORazepam [Ativan] 0.5 mg PO HS 09/08/20 09/08/20 Levothyroxine Sodium [Synthroid] 125 mcg PO DAILY 09/08/20 09/08/20 Ondansetron Odt [Zofran Odt] 4 mg PO DAILY 09/08/20 09/08/20 amLODIPine BESYLATE/BENAZEPRIL 1 cap PO DAILY 09/08/20 09/08/20 [Lotrel 5-10 MG] Allergies Allergy/AdvReac Type Severity Reaction Status Date / Time MRI Contrast AdvReac Severe could not Uncoded 09/08/20 14:53 walk, very dry skin Review of Systems ROS Statement: Those systems with pertinent positive or pertinent negative responses have been documented in the HPI. ROS Other: All systems not noted in ROS Statement are negative. Past Medical History Past Medical History: GERD/Reflux, Hypertension, Osteoarthritis (OA), Thyroid Disorder Additional Past Medical History / Comment(s): CONSTIPATION, NECK AND BACK PAIN. varicose veins, gadolinium toxicity. History of Any Multi-Drug Resistant Organisms: None Reported Past Surgical History: Back Surgery, Hernia Repair, Joint Replacement, Tonsillectomy Additional Past Surgical History / Comment(s): rt knee replacement ,PAIN CLINIC PROCEDURES. [place] cataracts Past Anesthesia/Blood Transfusion Reactions: No Reported Reaction Past Psychological History: No Psychological Hx Reported Smoking Status: Never smoker Past Alcohol Use History: Daily Past Drug Use History: None Reported - Past Family History Sister(s) Family Medical History: Cancer Additional Family Medical History / Comment(s): LUNG CANCER General Exam - General Exam Comments Initial Comments: GENERAL: Patient is well-developed and well-nourished. Patient is nontoxic and well- hydrated and is in mild distress. ENT: Neck is soft and supple. No significant lymphadenopathy is noted. Oropharynx is clear. Moist mucous membranes. Neck has full range of motion without eliciting any pain. EYES: The sclera were anicteric and conjunctiva were pink and moist. Extraocular movements were intact and pupils were equal round and reactive to light. Eyelids were unremarkable. PULMONARY: Unlabored respirations. Good breath sounds bilaterally. No audible rales rhonchi or wheezing was noted. CARDIOVASCULAR: There is a regular rate and rhythm without any murmurs gallops or rubs. ABDOMEN: Soft and nontender with normal bowel sounds. SKIN: Skin is clear with no lesions or rashes and otherwise unremarkable. NEUROLOGIC: Patient is alert and oriented x3. Cranial nerves II through XII are grossly intact. Motor and sensory are also intact. Normal speech, volume and content. Symmetrical smile. MUSCULOSKELETAL: Normal extremities with adequate strength and full range of motion. LYMPHATICS: No significant lymphadenopathy is noted PSYCHIATRIC: Normal psychiatric evaluation. Limitations: no limitations Course Vital Signs 09/08/20 09/08/20 09/08/20 13:47 14:00 15:00 Temperature 98 F Pulse Rate 64 61 64 Respiratory 16 19 18 Rate Blood Pressure 133/66 129/76 129/65 O2 Sat by Pulse 99 99 98 Oximetry 09/08/20 16:00 Temperature Pulse Rate 80 Respiratory 15 Rate Blood Pressure 146/82 O2 Sat by Pulse 98 Oximetry Medical Decision Making - Medical Decision Making EKG shows normal sinus rhythm at 64 bpm SC interval is 208 QRS is 70 QT interval is 452 QTC is 466. Patient's EKG shows no ST segment elevation or depression. Chest x-ray showed no acute abnormality. Patient's code was positive. Patient also had a urinary tract infection. Patient's family stated the patient was too weak to be taking home because the caregiver also had COVID and would not be able to help. I spoke with Dr. Brice he agreed to admit the patient admitted the patient remaining orders. - Lab Data Result diagrams: 09/08/20 15:00 09/08/20 14:18 Lab Results 09/08/20 09/08/20 09/08/20 Range/Units 14:18 14:18 14:18 WBC (3.8-10.6) k/uL RBC (3.80-5.40) m/uL Hgb (11.4-16.0) gm/dL Hct (34.0-46.0) % MCV (80.0-100.0) fL MCH (25.0-35.0) pg MCHC (31.0-37.0) g/dL RDW (11.5-15.5) % Plt Count (150-450) k/uL MPV Neutrophils % (Manual) % Lymphocytes % (Manual) % Monocytes % (Manual) % Eosinophils % (Manual) % Basophils % (Manual) % Neutrophils # (Manual) (1.3-7.7) k/uL Lymphocytes # (Manual) (1.0-4.8) k/uL Monocytes # (Manual) (0-1.0) k/uL Eosinophils # (Manual) (0-0.7) k/uL Basophils # (Manual) (0-0.2) k/uL Nucleated RBCs (0-0) /100 WBC Manual Slide Review PT (9.0-12.0) sec INR (<1.2) APTT (22.0-30.0) sec Sodium 133 L (137-145) mmol/L Potassium 4.5 (3.5-5.1) mmol/L Chloride 100 (98-107) mmol/L Carbon Dioxide 30 (22-30) mmol/L Anion Gap 3 mmol/L BUN 13 (7-17) mg/dL Creatinine 0.69 (0.52-1.04) mg/dL Est GFR (CKD-EPI)AfAm >90 (>60 ml/min/1.73 sqM) Est GFR (CKD-EPI)NonAf 78 (>60 ml/min/1.73 sqM) Glucose 113 H (74-99) mg/dL Plasma Lactic Acid Jimmie 1.8 (0.7-2.0) mmol/L Calcium 8.3 L (8.4-10.2) mg/dL Magnesium 1.5 L (1.6-2.3) mg/dL Total Bilirubin 1.0 (0.2-1.3) mg/dL AST 43 H (14-36) U/L ALT 20 (4-34) U/L Alkaline Phosphatase 64 (38-126) U/L Troponin I <0.012 (0.000-0.034) ng/mL Total Protein 6.6 (6.3-8.2) g/dL Albumin 3.5 (3.5-5.0) g/dL Urine Color Urine Appearance (Clear) Urine pH (5.0-8.0) Ur Specific [place] (1.001-1.035) Urine Protein (Negative) Urine Glucose (UA) (Negative) Urine Ketones (Negative) Urine Blood (Negative) Urine Nitrite (Negative) Urine Bilirubin (Negative) Urine Urobilinogen (<2.0) mg/dL Ur Leukocyte Esterase (Negative) Urine RBC (0-5) /hpf Urine WBC (0-5) /hpf Ur Squamous Epith Cells (0-4) /hpf Urine Bacteria (None) /hpf Urine Mucus (None) /hpf Coronavirus (PCR) (Not Detectd) 09/08/20 09/08/20 09/08/20 Range/Units 14:49 15:00 15:00 WBC 2.7 L (3.8-10.6) k/uL RBC 4.36 (3.80-5.40) m/uL Hgb 13.5 (11.4-16.0) gm/dL Hct 41.6 (34.0-46.0) % MCV 95.5 (80.0-100.0) fL MCH 31.0 (25.0-35.0) pg MCHC 32.5 (31.0-37.0) g/dL RDW 13.9 (11.5-15.5) % Plt Count 154 (150-450) k/uL MPV 7.8 Neutrophils % (Manual) 64 % Lymphocytes % (Manual) 23 % Monocytes % (Manual) 11 % Eosinophils % (Manual) 1 % Basophils % (Manual) 1 % Neutrophils # (Manual) 1.73 (1.3-7.7) k/uL Lymphocytes # (Manual) 0.62 L (1.0-4.8) k/uL Monocytes # (Manual) 0.30 (0-1.0) k/uL Eosinophils # (Manual) 0.03 (0-0.7) k/uL Basophils # (Manual) 0.03 (0-0.2) k/uL Nucleated RBCs 0 (0-0) /100 WBC Manual Slide Review Performed PT 10.7 (9.0-12.0) sec INR 1.0 (<1.2) APTT 25.0 (22.0-30.0) sec Sodium (137-145) mmol/L Potassium (3.5-5.1) mmol/L Chloride (98-107) mmol/L Carbon Dioxide (22-30) mmol/L Anion Gap mmol/L BUN (7-17) mg/dL Creatinine (0.52-1.04) mg/dL Est GFR (CKD-EPI)AfAm (>60 ml/min/1.73 sqM) Est GFR (CKD-EPI)NonAf (>60 ml/min/1.73 sqM) Glucose (74-99) mg/dL Plasma Lactic Acid Jimmie (0.7-2.0) mmol/L Calcium (8.4-10.2) mg/dL Magnesium (1.6-2.3) mg/dL Total Bilirubin (0.2-1.3) mg/dL AST (14-36) U/L ALT (4-34) U/L Alkaline Phosphatase (38-126) U/L Troponin I (0.000-0.034) ng/mL Total Protein (6.3-8.2) g/dL Albumin (3.5-5.0) g/dL Urine Color Urine Appearance (Clear) Urine pH (5.0-8.0) Ur Specific [place] (1.001-1.035) Urine Protein (Negative) Urine Glucose (UA) (Negative) Urine Ketones (Negative) Urine Blood (Negative) Urine Nitrite (Negative) Urine Bilirubin (Negative) Urine Urobilinogen (<2.0) mg/dL Ur Leukocyte Esterase (Negative) Urine RBC (0-5) /hpf Urine WBC (0-5) /hpf Ur Squamous Epith Cells (0-4) /hpf Urine Bacteria (None) /hpf Urine Mucus (None) /hpf Coronavirus (PCR) Detected A (Not Detectd) 09/08/20 Range/Units 15:57 WBC (3.8-10.6) k/uL RBC (3.80-5.40) m/uL Hgb (11.4-16.0) gm/dL Hct (34.0-46.0) % MCV (80.0-100.0) fL MCH (25.0-35.0) pg MCHC (31.0-37.0) g/dL RDW (11.5-15.5) % Plt Count (150-450) k/uL MPV Neutrophils % (Manual) % Lymphocytes % (Manual) % Monocytes % (Manual) % Eosinophils % (Manual) % Basophils % (Manual) % Neutrophils # (Manual) (1.3-7.7) k/uL Lymphocytes # (Manual) (1.0-4.8) k/uL Monocytes # (Manual) (0-1.0) k/uL Eosinophils # (Manual) (0-0.7) k/uL Basophils # (Manual) (0-0.2) k/uL Nucleated RBCs (0-0) /100 WBC Manual Slide Review PT (9.0-12.0) sec INR (<1.2) APTT (22.0-30.0) sec Sodium (137-145) mmol/L Potassium (3.5-5.1) mmol/L Chloride (98-107) mmol/L Carbon Dioxide (22-30) mmol/L Anion Gap mmol/L BUN (7-17) mg/dL Creatinine (0.52-1.04) mg/dL Est GFR (CKD-EPI)AfAm (>60 ml/min/1.73 sqM) Est GFR (CKD-EPI)NonAf (>60 ml/min/1.73 sqM) Glucose (74-99) mg/dL Plasma Lactic Acid Jimmie (0.7-2.0) mmol/L Calcium (8.4-10.2) mg/dL Magnesium (1.6-2.3) mg/dL Total Bilirubin (0.2-1.3) mg/dL AST (14-36) U/L ALT (4-34) U/L Alkaline Phosphatase (38-126) U/L Troponin I (0.000-0.034) ng/mL Total Protein (6.3-8.2) g/dL Albumin (3.5-5.0) g/dL Urine Color Yellow Urine Appearance Cloudy H (Clear) Urine pH 7.0 (5.0-8.0) Ur Specific [place] 1.011 (1.001-1.035) Urine Protein Negative (Negative) Urine Glucose (UA) Negative (Negative) Urine Ketones Negative (Negative) Urine Blood Negative (Negative) Urine Nitrite Positive H (Negative) Urine Bilirubin Negative (Negative) Urine Urobilinogen <2.0 (<2.0) mg/dL Ur Leukocyte Esterase Large H (Negative) Urine RBC 2 (0-5) /hpf Urine WBC 74 H (0-5) /hpf Ur Squamous Epith Cells 7 H (0-4) /hpf Urine Bacteria Rare H (None) /hpf Urine Mucus Rare H (None) /hpf Coronavirus (PCR) (Not Detectd) Disposition Clinical Impression: COVID-19, Urinary tract infection Disposition: ADMITTED IP TO THIS HOSP Referrals: Diamond Brice MD [Primary Care Provider] - 1-2 days Time of Disposition: 17:01
[2020-09-08 14:42] LABS: ALT 20 U/L (4-34); AST 43 U/L (14-36); African American GFR (CKD) >90 (>60 ml/min/1.73 sqM); Albumin 3.5 g/dL (3.5-5.0); Alkaline Phosphatase 64 U/L (38-126); Anion Gap 3 mmol/L; Blood Urea Nitrogen 13 mg/dL (7-17); Calcium 8.3 mg/dL (8.4-10.2); Carbon Dioxide 30 mmol/L (22-30); Chloride 100 mmol/L (98-107); Glucose 113 mg/dL (74-99); Magnesium 1.5 mg/dL (1.6-2.3); Non-African American GFR(CKD) 78 (>60 ml/min/1.73 sqM); Potassium 4.5 mmol/L (3.5-5.1); Sodium 133 mmol/L (137-145); Total Protein 6.6 g/dL (6.3-8.2)
--- NOTE | 2020-09-08 14:43 | XR ---
EXAMINATION TYPE: XR chest 2V DATE OF EXAM: 09/08/2020 COMPARISON: 07/03/2013 HISTORY: 89-year-old female with weakness TECHNIQUE: AP and lateral views FINDINGS: Heart mildly enlarged. Hyperinflation with increased retrosternal clear space. Aorta and pulmonary va sculature within normal limits. No yogesh consolidation or pleural effusion seen. ACDF hardware. Parti ally visualized lumbar fusion hardware. These moderate degenerative disc disease midthoracic spine. IMPRESSION: 1. Mild cardiomegaly and underlying COPD. 2. No definite acute process.
[2020-09-08 15:35] LABS: HCT 41.6 % (34.0-46.0); HGB 13.5 gm/dL (11.4-16.0); MCHC 32.5 g/dL (31.0-37.0); MCV 95.5 fL (80.0-100.0); Mean Platelet Volume 7.8; Platelet Count 154 k/uL (150-450); RBC 4.36 m/uL (3.80-5.40); RDW 13.9 % (11.5-15.5); WBC 2.7 k/uL (3.8-10.6)
[2020-09-08 15:39] LABS: Prothrombin Time 10.7 sec (9.0-12.0)
[2020-09-08 16:15] LABS: Basophils # (M) 0.03 k/uL (0-0.2); Eosinophils # (M) 0.03 k/uL (0-0.7); Lymphocytes # (M) 0.62 k/uL (1.0-4.8); Neutrophils # (M) 1.73 k/uL (1.3-7.7); Neutrophils % (M) 64 %; Nucleated Red Blood Cells 0 /100 WBC (0-0); Total Cells Counted 100
[2020-09-08 16:31] LABS: Appearance,Urine Cloudy (Clear); Bacteria,Urine Rare /hpf; Bilirubin,Urine Negative (Negative); Blood,Urine Negative (Negative); Color,Urine Yellow; Glucose,Urine (UA) Negative (Negative); Ketones,Urine Negative (Negative); Leukocyte Esterase,Urine Large (Negative); Mucus,Urine Rare /hpf; Nitrite,Urine Positive (Negative); Protein,Urine Negative (Negative); RBC,Urine 2 /hpf (0-5); Specific Gravity,Urine 1.011 (1.001-1.035); Squamous Epithelial Cell,Urine 7 /hpf (0-4); Urobilinogen,Urine <2.0 mg/dL (<2.0); WBC,Urine 74 /hpf (0-5)
[2020-09-08] MEDS ORDERED: cefTRIAXone IN SWFI 1,000 MG/10 ML SYRINGE IVP STA (16:56)
[2020-09-08] MEDS ORDERED: SODIUM CHLORIDE 0.9% 1,000 ML IV ONE (17:04)
[2020-09-08] MEDS: LORazepam 0.5 MG TAB PO SCH (21:48)
[2020-09-08] MEDS: ASPIRIN 81 MG PO SCH (21:48)
[2020-09-09] MEDS: LEVOTHYROXINE 125 MCG TAB PO SCH (05:49)
[2020-09-09] MEDS: PANTOPRAZOLE 40 MG TABLET PO SCH (08:59)
[2020-09-09] MEDS: ONDANSETRON ODT 4 MG TAB PO SCH (08:59)
[2020-09-09] MEDS: ASCORBIC ACID 500 MG TAB PO SCH (09:05)
[2020-09-09] MEDS: CHOLECALCIFEROL 400 UNIT TAB PO SCH (09:05)
[2020-09-09] MEDS: amLODIPine 5 MG TAB PO SCH (09:05)
[2020-09-09] MEDS: LORATADINE 10 MG TAB PO SCH (09:05)
[2020-09-09] MEDS: DEXAMETHASONE SOD PHOSPHATE 10 MG/ML 1 ML VIAL IV SCH (09:05)
[2020-09-09] MEDS: ENOXAPARIN 40 MG/0.4 ML SYRINGE SQ SCH (09:06)
[2020-09-09] MEDS: ZINC SULFATE 220 MG CAP PO SCH (09:06)
[2020-09-09] MEDS: lisinopriL 10 MG TAB PO SCH (09:06)
[2020-09-09 09:59] LABS: Basophils % (A) 1 %; Eosinophils % (A) 1 %; HCT 41.3 % (34.0-46.0); HGB 13.6 gm/dL (11.4-16.0); Lymphocytes # (A) 0.8 k/uL (1.0-4.8); Lymphocytes % (A) 29 %; MCH 31.4 pg (25.0-35.0); MCHC 32.8 g/dL (31.0-37.0); MCV 95.8 fL (80.0-100.0); Mean Platelet Volume 7.7; Monocytes # (A) 0.2 k/uL (0-1.0); Monocytes % (A) 8 %; Neutrophils # (A) 1.6 k/uL (1.3-7.7); Neutrophils % (A) 59 %; Platelet Count 146 k/uL (150-450); RBC 4.31 m/uL (3.80-5.40); RDW 13.4 % (11.5-15.5); WBC 2.7 k/uL (3.8-10.6)
--- NOTE | 2020-09-09 15:11 | CONS ---
CONSULTATION PULMONARY/CRITICAL CARE CONSULTATION: DATE OF SERVICE: 09/09/2020 REASON FOR CONSULTATION: COVID-19 infection. An 89-year-old female, not a particularly good historian, who apparently comes to the emergency department via EMS on September 08 because of generalized weakness. She currently tells me that she is not having any shortness of breath, cough, wheezing, phlegm production, fever, or any other complaints for that matter. She just feels sort of weak. She felt like she was going to "pass out." She apparently has a son who was recently exposed to COVID. She tested positive for COVID as well. Her chest x-ray is normal. She is not having any pulmonary complaints. She denies any chest pain or chest discomfort. There are no GI complaints. She denies any nausea, vomiting, diarrhea, or abdominal pain. She denies all genitourinary complaints. Quite honestly, I am not sure why she was actually admitted. . HOME MEDICATIONS: Include Duragesic patch 75 mcg every 3 days, aspirin, Zyrtec, Ativan, Synthroid, Zofran, and Lotrel. ALLERGIES: Denied. MEDICAL HISTORY: GERD, hypertension, DJD, hypothyroidism and chronic pain syndrome. She also suffers from constipation, neck and back pain, and varicose veins. SURGICAL HISTORY: Includes back surgery, hernia repair, right knee replacement, tonsillectomy, and cataract surgery. SOCIAL HISTORY: Significant that she is a lifelong nonsmoker. She drinks alcohol daily. Denies any illicit drug use. FAMILY HISTORY: Positive for sister with cancer, which is apparently lung cancer. REVIEW OF SYSTEMS: CONSTITUTIONAL: Weakness. NEUROLOGIC: Negative. HEENT: Negative. CARDIOVASCULAR: Negative. PULMONARY: Negative. GI: Negative. : Negative. RHEUMATOLOGIC: Negative. IMMUNOLOGIC: Negative. ENDOCRINOLOGIC: Negative. DERMATOLOGIC: Negative. Current vital signs include a temperature which is 98.6, T-max which is all within normal range. Heart rate 84, respiratory rate 18, blood pressure 135/76. Room air saturation was 95%. Appears in no acute distress. HEENT: Examination is grossly unremarkable. Mucous membranes are moist. No supplemental oxygen. NECK: Supple, full range of motion. No adenopathy. Neck veins are flat. CARDIOVASCULAR: Examination reveals regular rhythm and rate. Heart rate 84 beats per minute. S1, S2 normal. LUNGS: Clear, breath sounds equal. No wheezes, rhonchi, or crackles. ABDOMEN: Soft, bowel sounds are heard. EXTREMITIES: Intact. SKIN: Without rash. NEUROLOGIC: Examination is nonfocal. LABS: Reviewed. White count 2.7, hemoglobin 13.6, hematocrit 41.3, platelet count 146,000. Her D-dimer is 0.89. Sodium 133, potassium 4.5, chloride 100, CO2 is 30, anion gap is 3. BUN and creatinine were 13 and 0.69. Urine is positive for nitrite. Leukocyte esterase was large positive. There was 74 WBCs and rare bacteria. COVID testing was positive. Chest x-ray shows no acute process. Current medications are reviewed. She is on amlodipine, vitamin C, aspirin, Rocephin, cholecalciferol, Decadron, Lovenox, fentanyl patch, levothyroxine, Zestril, loratadine, Ativan, Zofran, Protonix, and zinc. ASSESSMENT: 1. COVID-19 infection without pulmonary complaints or hypoxemia. 2. Possible urinary tract infection. 3. History of gastroesophageal reflux disease. 4. History of hypertension. 5. Osteoarthritis. 6. Hypothyroidism. 7. Chronic constipation. 8. Chronic neck and back pain. PLAN: The patient may in fact have a urinary tract infection. She is currently on Rocephin. From the pulmonary standpoint, she is stable. Would aim for a quick discharged home. I would continue on vitamin C, vitamin D3, and zinc. Also would continue with the Decadron for a total of 10 days, 6 mg a day. Should be taken with food, so it does not irritate the stomach lining. Antibiotic on discharge, the choice of the primary service. No additional recommendations are made. MMODL / IJN: [id number] /
--- NOTE | 2020-09-09 15:19 | P.HPIM ---
History of Present Illness H&P Date: 09/08/20 This is an 89-year-old female patient of mine with history of hypertension, gastroesophageal reflux disease, hypothyroidism, chronic pain syndrome, seasonal ALLERGIES. Patient presented to [facility] emergency center due to generalized weakness and cough. Patient was found to be lethargic by her son at home. Son had recently been exposed to cold.. Patient denies having any shortness of breath. No headache. No chest pain. Denies fever or chills. No abdominal pain, no nausea or vomiting, no diarrhea. And no loss of taste. Patient was afebrile, heart rate 64, blood pressure 133/66, pulse ox 99% on room air. The VBC 2.7, hemoglobin 13.5, platelets 154. EKG was a sinus rhythm with no acute ST changes with heart rate of 64 bpm. Chest x-ray showed no acute abnormality. COVID-19 positive. Sodium 133 otherwise electrolytes and renal function normal. Blood sugar 113. Lactic acid 1.8. Troponin negative. Urinalysis was cloudy, leukoesterase large, WBC 74. Patient received 1 L of IV fluids, ceftriaxone, [facility] and consult for pulmonary medicine and infectious disease. Review of Systems Constitutional: Reports anorexia, Reports chronic pain, Reports fatigue, Reports lethargy, Reports malaise, Reports poor appetite, Reports weakness, Denies chills, Denies fever Eyes: denies blurred vision, denies pain Ears, nose, mouth and throat: Denies dysphagia, Denies headache, Denies nasal congestion, Denies nasal discharge, Denies sore throat Cardiovascular: Denies chest pain, Denies decreased exercise tolerance, Denies dyspnea on exertion, Denies edema, Denies leg edema, Denies lightheadedness, Denies shortness of breath, Denies syncope Respiratory: Reports cough, Reports cough with sputum, Reports respiratory infections, Denies dyspnea, Denies excessive sputum, Denies hemoptysis, Denies home oxygen, Denies wheezing Gastrointestinal: Reports loss of appetite, Denies abdominal pain, Denies BRBPR, Denies diarrhea, Denies nausea, Denies vomiting Genitourinary: Denies dysuria, Denies hematuria, Denies urgency, Denies urinary frequency Menstruation: Reports postmenopausal Musculoskeletal: Reports muscle weakness, Denies frequent falls, Denies myalgias Integumentary: Denies pruritus, Denies rash, Denies wounds Neurological: Reports change in mentation, Reports confusion, Denies numbness, Denies weakness Psychiatric: Denies anxiety, Denies depression Endocrine: Denies fatigue, Denies weight change Past Medical History Past Medical History: GERD/Reflux, Hypertension, Osteoarthritis (OA), Thyroid Disorder Additional Past Medical History / Comment(s): CONSTIPATION, NECK AND BACK PAIN. varicose veins, gadolinium toxicity. History of Any Multi-Drug Resistant Organisms: None Reported Past Surgical History: Back Surgery, Hernia Repair, Joint Replacement, Tonsillectomy Additional Past Surgical History / Comment(s): rt knee replacement ,PAIN CLINIC PROCEDURES. [place] cataracts Past Anesthesia/Blood Transfusion Reactions: No Reported Reaction Past Psychological History: No Psychological Hx Reported Smoking Status: Never smoker Past Alcohol Use History: Daily Past Drug Use History: None Reported - Past Family History Sister(s) Family Medical History: Cancer Additional Family Medical History / Comment(s): LUNG CANCER Medications and Allergies Home Medications Medication Instructions Recorded Confirmed Type fentaNYL 75MCG/HR PATCH [Duragesic 1 patch TRANSDERM Q72H 12/10/14 09/08/20 History 75Mcg/Hr Patch] Aspirin EC [Ecotrin Low Dose] 81 mg PO HS 09/08/20 09/08/20 History Cetirizine HCl [Zyrtec] 10 mg PO DAILY 09/08/20 09/08/20 History LORazepam [Ativan] 0.5 mg PO HS 09/08/20 09/08/20 History Levothyroxine Sodium [Synthroid] 125 mcg PO DAILY 09/08/20 09/08/20 History Ondansetron Odt [Zofran Odt] 4 mg PO DAILY 09/08/20 09/08/20 History amLODIPine BESYLATE/BENAZEPRIL 1 cap PO DAILY 09/08/20 09/08/20 History [Lotrel 5-10 MG] Allergies Allergy/AdvReac Type Severity Reaction Status Date / Time MRI Contrast AdvReac Severe could not Uncoded 09/08/20 14:53 walk, very dry skin Physical Exam Vitals: Vital Signs Temp Pulse Resp BP Pulse Ox 09/08/20 17:00 98 F 87 16 155/84 09/08/20 16:00 80 15 146/82 98 09/08/20 15:00 64 18 129/65 98 09/08/20 14:00 61 19 129/76 99 09/08/20 13:47 98 F 64 16 133/66 99 Intake and Output 09/08/20 09/08/20 09/08/20 06:59 14:59 22:59 Other: Weight 55.338 kg Physical examination: HEENT: Head is atraumatic, normocephalic, pupils were equal round reactive to light and accommodation, extraocular muscle movement intact, mucous membranes of the mouth are somewhat dry. Neck: Supple, no JVD, no carotid bruit. Chest: Decreased breath sounds at bases few rhonchi no extremity wheezes, no chest wall tenderness, no intercostal retractions. Heart: First heart sound is depressed, second heart sounds normal, there is no gallop or murmur. Abdomen: Soft, minimal nonspecific tenderness no rebound or guarding positive bowel sounds Extremities: No pedal edema, dorsalis pedis +1 bilaterally. Neurologic examination: Patient is awake alert and oriented 3, cranial nerves 3-12 are grossly intact, muscle power 4 out of 5 in upper and lower extremities bilaterally. Results CBC & Chem 7: 09/09/20 09:08 09/08/20 14:18 Labs: Abnormal Lab Results - Last 24 Hours (Table) 09/08/20 09/08/20 09/08/20 Range/Units 14:18 14:49 15:00 WBC 2.7 L (3.8-10.6) k/uL Lymphocytes # (Manual) 0.62 L (1.0-4.8) k/uL Sodium 133 L (137-145) mmol/L Glucose 113 H (74-99) mg/dL Calcium 8.3 L (8.4-10.2) mg/dL Magnesium 1.5 L (1.6-2.3) mg/dL AST 43 H (14-36) U/L Urine Appearance (Clear) Urine Nitrite (Negative) Ur Leukocyte Esterase (Negative) Urine WBC (0-5) /hpf Ur Squamous Epith Cells (0-4) /hpf Urine Bacteria (None) /hpf Urine Mucus (None) /hpf Coronavirus (PCR) Detected A (Not Detectd) 09/08/20 Range/Units 15:57 WBC (3.8-10.6) k/uL Lymphocytes # (Manual) (1.0-4.8) k/uL Sodium (137-145) mmol/L Glucose (74-99) mg/dL Calcium (8.4-10.2) mg/dL Magnesium (1.6-2.3) mg/dL AST (14-36) U/L Urine Appearance Cloudy H (Clear) Urine Nitrite Positive H (Negative) Ur Leukocyte Esterase Large H (Negative) Urine WBC 74 H (0-5) /hpf Ur Squamous Epith Cells 7 H (0-4) /hpf Urine Bacteria Rare H (None) /hpf Urine Mucus Rare H (None) /hpf Coronavirus (PCR) (Not Detectd) Thrombosis Risk Factor Assmnt - DVT/VTE Prophylaxis DVT/VTE Prophylaxis: Pharmacologic Prophylaxis ordered Assessment and Plan Assessment: 1. COVID-19 infection. Continue vitamin C 500 mg daily, vitamin D 400 units daily, Decadron 6 mg IV daily, Lovenox 40 mg subcu daily, zinc 220 mg daily. Consult with infectious disease and pulmonary medicine. Oxygenation is stable at this point. 2. Acute urinary tract infection. Continue Rocephin 1 g daily, urine culture in progress. 3. Acute metabolic encephalopathy secondary to Covid 19 infection and acute urinary tract infection. Continue treatment as above. 4. Hypertension. Continue amlodipine 5 mg daily, lisinopril 10 mg daily 5. Hypothyroidism. Continue levothyroxine 125 g daily. 6. Seasonal ALLERGIES. Stable. 7. Chronic pain. Continue fentanyl patch 75 g daily. 8. GI prophylaxis. Protonix. 9. DVT prophylaxis. Lovenox. Admit to inpatient. Estimate length of stay 2 midnights Patient is full code. Discharge plan: To be determined.
--- NOTE | 2020-09-09 15:22 | P.PN ---
Subjective Progress Note Date: 09/09/20 This is an 89-year-old female patient of mine with history of hypertension, gastroesophageal reflux disease, hypothyroidism, chronic pain syndrome, seasonal ALLERGIES. Patient presented to [facility] emergency center due to generalized weakness and cough. Patient was found to be lethargic by her son at home. Son had recently been exposed to cold.. Patient denies having any shortness of breath. No headache. No chest pain. Denies fever or chills. No abdominal pain, no nausea or vomiting, no diarrhea. And no loss of taste. Patient was afebrile, heart rate 64, blood pressure 133/66, pulse ox 99% on room air. The VBC 2.7, hemoglobin 13.5, platelets 154. EKG was a sinus rhythm with no acute ST changes with heart rate of 64 bpm. Chest x-ray showed no acute abnormality. COVID-19 positive. Sodium 133 otherwise electrolytes and renal function normal. Blood sugar 113. Lactic acid 1.8. Troponin negative. Urinalysis was cloudy, leukoesterase large, WBC 74. Patient received 1 L of IV fluids, ceftriaxone, [facility] and consult for pulmonary medicine and infectious disease. 09/09: Patient has been afebrile, heart rate 84, blood pressure 135/76, pulse ox 91% on 2 L nasal cannula. Repeat blood work reveals a VBC 2.7, hemoglobin 13.6, platelet count 146. D-dimer 0.89. Urine culture is in progress. Consult in place with pulmonary medicine and infectious disease. Objective - Vital Signs Vital signs: Vital Signs Temp 98.6 F 09/09/20 11:00 Pulse 84 09/09/20 11:00 Resp 18 09/09/20 11:00 BP 135/76 09/09/20 11:00 Pulse Ox 91 L 09/09/20 11:00 Intake & Output 09/08/20 09/09/20 09/09/20 18:59 06:59 18:59 Intake Total 590 Balance 590 Weight 55.338 kg 55.338 kg Intake: Oral 590 Other: Voiding Method Bedside Commode Bedside Commode Bedpan - Exam Review of Systems Constitutional: Reports anorexia, Reports chronic pain, Reports fatigue, Reports lethargy, Reports malaise, Reports poor appetite, Reports weakness, Denies chills, Denies fever Eyes: denies blurred vision, denies pain Ears, nose, mouth and throat: Denies dysphagia, Denies headache, Denies nasal congestion, Denies nasal discharge, Denies sore throat Cardiovascular: Denies chest pain, Denies decreased exercise tolerance, Denies dyspnea on exertion, Denies edema, Denies leg edema, Denies lightheadedness, Denies shortness of breath, Denies syncope Respiratory: Reports cough, Reports cough with sputum, Reports respiratory infections, Denies dyspnea, Denies excessive sputum, Denies hemoptysis, Denies home oxygen, Denies wheezing Gastrointestinal: Reports loss of appetite, Denies abdominal pain, Denies BRBPR, Denies diarrhea, Denies nausea, Denies vomiting Genitourinary: Denies dysuria, Denies hematuria, Denies urgency, Denies urinary frequency Menstruation: Reports postmenopausal Musculoskeletal: Reports muscle weakness, Denies frequent falls, Denies myalgias Integumentary: Denies pruritus, Denies rash, Denies wounds Neurological: Reports change in mentation, Reports confusion, Denies numbness, Denies weakness Psychiatric: Denies anxiety, Denies depression Endocrine: Denies fatigue, Denies weight change Physical examination: HEENT: Head is atraumatic, normocephalic, pupils were equal round reactive to light and accommodation, extraocular muscle movement intact, mucous membranes of the mouth are somewhat dry. Neck: Supple, no JVD, no carotid bruit. Chest: Decreased breath sounds at bases few rhonchi no extremity wheezes, no chest wall tenderness, no intercostal retractions. Heart: First heart sound is depressed, second heart sounds normal, there is no gallop or murmur. Abdomen: Soft, minimal nonspecific tenderness no rebound or guarding positive bowel sounds Extremities: No pedal edema, dorsalis pedis +1 bilaterally. Neurologic examination: Patient is awake alert and oriented 3, cranial nerves 3-12 are grossly intact, muscle power 4 out of 5 in upper and lower extremities bilaterally. - Labs CBC & Chem 7: 09/09/20 09:08 09/08/20 14:18 Labs: Abnormal Lab Results - Last 24 Hours (Table) 09/08/20 09/08/20 09/08/20 Range/Units 14:49 15:00 15:57 WBC 2.7 L (3.8-10.6) k/uL Plt Count (150-450) k/uL Lymphocytes # (1.0-4.8) k/uL Lymphocytes # (Manual) 0.62 L (1.0-4.8) k/uL D-Dimer (<0.60) mg/L FEU Urine Appearance Cloudy H (Clear) Urine Nitrite Positive H (Negative) Ur Leukocyte Esterase Large H (Negative) Urine WBC 74 H (0-5) /hpf Ur Squamous Epith Cells 7 H (0-4) /hpf Urine Bacteria Rare H (None) /hpf Urine Mucus Rare H (None) /hpf Coronavirus (PCR) Detected A (Not Detectd) 09/09/20 09/09/20 Range/Units 09:07 09:08 WBC 2.7 L (3.8-10.6) k/uL Plt Count 146 L (150-450) k/uL Lymphocytes # 0.8 L (1.0-4.8) k/uL Lymphocytes # (Manual) (1.0-4.8) k/uL D-Dimer 0.89 H (<0.60) mg/L FEU Urine Appearance (Clear) Urine Nitrite (Negative) Ur Leukocyte Esterase (Negative) Urine WBC (0-5) /hpf Ur Squamous Epith Cells (0-4) /hpf Urine Bacteria (None) /hpf Urine Mucus (None) /hpf Coronavirus (PCR) (Not Detectd) Microbiology - Last 24 Hours (Table) 09/08/20 15:57 Urine Culture - Preliminary Urine,Voided Assessment and Plan Assessment: 1. COVID-19 infection. Continue vitamin C 500 mg daily, vitamin D 400 units daily, Decadron 6 mg IV daily, Lovenox 40 mg subcu daily, zinc 220 mg daily. Consult with infectious disease and pulmonary medicine. Oxygenation is stable at this point. 2. Acute urinary tract infection. Continue Rocephin 1 g daily, urine culture in progress. 3. Acute metabolic encephalopathy secondary to Covid 19 infection and acute urinary tract infection. Continue treatment as above. 4. Hypertension. Continue amlodipine 5 mg daily, lisinopril 10 mg daily 5. Hypothyroidism. Continue levothyroxine 125 g daily. 6. Seasonal ALLERGIES. Stable. 7. Chronic pain. Continue fentanyl patch 75 g daily. 8. GI prophylaxis. Protonix. 9. DVT prophylaxis. Lovenox. Admit to inpatient. Estimate length of stay 2 midnights Patient is full code. Discharge plan: To be determined.
[2020-09-09 15:50] LABS: ALT 22 U/L (8-44); AST 34 U/L (13-35); African American GFR (CKD) 89.7 (60.0-200.0); Alkaline Phosphatase 73 U/L (41-126); BUN/Creat Ratio 11.43 Ratio (12.00-20.00); C Reactive Protein <0.4 mg/dL (0.0-0.8); Calcium 8.3 mg/dL (8.7-10.3); Carbon Dioxide 29.6 mmol/L (21.6-31.8); Chloride 103 mmol/L (96-109); Glucose 100 mg/dL (70-110); Non-African American GFR(CKD) 77.4 (60.0-200.0); Potassium 3.5 mmol/L (3.5-5.5); Sodium 139 mmol/L (135-145); Total Bilirubin 0.4 mg/dL (0.2-1.2); Total Protein 5.4 g/dL (6.2-8.2)
--- NOTE | 2020-09-09 16:47 | P.CONS ---
History of Present Illness - Reason for Consult Consult date: 09/09/20 COVID-19 - History of Present Illness HISTORY OF PRESENT ILLNESS This is an 89-year-old female presented to the hospital due to generalized weakness and cough, lethargy and shortness of breath. She has a small amount of cough with clear phlegm. Symptoms started yesterday. She also has a touch of nausea. No diarrhea. She denies any dysuria. No chest pain. COVID-19 was positive. Chest x-ray showed no acute abnormality. Patient was started on IV fluids, ceftriaxone and admitted to the [facility] floor. Patient has not experienced any hypoxia. Symptoms were onset of yesterday REVIEW OF SYSTEMS Constitutional: No fever, no chills, no night sweats. No weight change. Reports weakness, reports fatigue or lethargy. No daytime sleepiness. EENT: No headache. No blurred vision or double vision, no loss of vision. No loss of Hearing, no ringing in the ears, no dizziness. No nasal drainage or congestion. No epistaxis. No sore throat. Lungs: Reports shortness of breath, reports cough, reports sputum production. No wheezing. Cardiovascular: No chest pain, no lower extremity edema. No palpitations. No paroxysmal nocturnal dyspnea. No orthopnea. No lightheadedness or dizziness. No syncopal episodes. Abdominal: No abdominal pain. Reports nausea, denies vomiting. No diarrhea. No constipation. No bloody or tarry stools. reports loss of appetite. Genitourinary: No dysuria, increased frequency, urgency. No urinary retention. Reports urinary incontinence. Musculoskeletal: No myalgias. No muscle weakness, no gait dysfunction, no frequent falls. Integumentary: No wounds, no lesions. No rash or pruritus. Neurologic: No aphasia. No facial droop. No change in mentation. PHYSICAL EXAMINATION Gen: This is an 89-year-old female. She is resting bed appears to be comfortable. VS: Afebrile, heart rate 84, blood pressure 135/76, pulse ox 91% on 2 L nasal cannula HEENT: Head is atraumatic, normocephalic. Pupils equal, round. Sclerae is anicteric. NECK: Supple. No JVD. No lymphadenopathy. No thyromegaly. LUNGS: Clear to auscultation. No wheezes or rhonchi. No intercostal retractions. HEART: Regular rate and rhythm. No murmur. ABDOMEN: Soft. Bowel sounds are present. No masses. No tenderness. Female catheter in place EXTREMITIES: No pedal edema. No calf tenderness. NEUROLOGICAL: Patient is awake, alert and oriented x3. Cranial nerves 2 through 12 are grossly intact. ASSESSMENT COVID-19 infection PLAN Patient does not qualify for Remdesivir Continue ceftriaxone Continue supplements with vitamin C, vitamin D and zinc Continue Lovenox and dexamethasone Thank you kindly for this consultation The above dictated assessment and findings were discussed with Dr. Sarmiento. The impression and plan of care have been directed as dictated. Narcisa Belle nurse practitioner acting as scribe for Dr. Sarmiento. Past Medical History Past Medical History: GERD/Reflux, Hypertension, Osteoarthritis (OA), Thyroid Disorder Additional Past Medical History / Comment(s): CONSTIPATION, NECK AND BACK PAIN. varicose veins, gadolinium toxicity. History of Any Multi-Drug Resistant Organisms: None Reported Past Surgical History: Back Surgery, Hernia Repair, Joint Replacement, Tonsillectomy Additional Past Surgical History / Comment(s): rt knee replacement ,PAIN CLINIC PROCEDURES. [place] cataracts Past Anesthesia/Blood Transfusion Reactions: No Reported Reaction Past Psychological History: No Psychological Hx Reported Smoking Status: Former smoker Past Alcohol Use History: Daily Additional Past Alcohol Use History / Comment(s): 1 GLASS WINE DAILY. QUIT SMOKING IN 1993- smoked for 4-5 yrs, < 1/2 PPD Past Drug Use History: None Reported - Past Family History Sister(s) Family Medical History: Cancer Additional Family Medical History / Comment(s): LUNG CANCER Medications and Allergies Home Medications Medication Instructions Recorded Confirmed Type fentaNYL 75MCG/HR PATCH [Duragesic 1 patch TRANSDERM Q72H 12/10/14 09/08/20 History 75Mcg/Hr Patch] Aspirin EC [Ecotrin Low Dose] 81 mg PO HS 09/08/20 09/08/20 History Cetirizine HCl [Zyrtec] 10 mg PO DAILY 09/08/20 09/08/20 History LORazepam [Ativan] 0.5 mg PO HS 09/08/20 09/08/20 History Levothyroxine Sodium [Synthroid] 125 mcg PO DAILY 09/08/20 09/08/20 History Ondansetron Odt [Zofran Odt] 4 mg PO DAILY 09/08/20 09/08/20 History amLODIPine BESYLATE/BENAZEPRIL 1 cap PO DAILY 09/08/20 09/08/20 History [Lotrel 5-10 MG] Allergies Allergy/AdvReac Type Severity Reaction Status Date / Time MRI Contrast AdvReac Severe could not Uncoded 09/08/20 14:53 walk, very dry skin Physical Exam Vitals: Vital Signs Temp Pulse Pulse Resp BP BP Pulse Ox 09/09/20 05:00 98.6 F 69 16 154/83 95 09/09/20 00:50 16 09/08/20 23:29 98 F 78 16 154/78 99 09/08/20 21:54 97.8 F 79 16 164/94 99 09/08/20 20:30 72 16 09/08/20 19:51 79 16 139/78 99 09/08/20 17:00 98 F 87 16 155/84 09/08/20 16:00 80 15 146/82 98 09/08/20 15:00 64 18 129/65 98 09/08/20 14:00 61 19 129/76 99 09/08/20 13:47 98 F 64 16 133/66 99 Intake and Output 09/08/20 09/09/20 09/09/20 22:59 06:59 14:59 Intake Total 590 Balance 590 Intake: Oral 590 Other: Voiding Method Bedside Commode Weight 55.338 kg Results CBC & Chem 7: 09/09/20 09:08 09/09/20 09:07 Labs: Abnormal Lab Results - Last 24 Hours (Table) 09/08/20 09/08/20 09/08/20 Range/Units 14:18 14:49 15:00 WBC 2.7 L (3.8-10.6) k/uL Plt Count (150-450) k/uL Lymphocytes # (1.0-4.8) k/uL Lymphocytes # (Manual) 0.62 L (1.0-4.8) k/uL D-Dimer (<0.60) mg/L FEU Sodium 133 L (137-145) mmol/L Glucose 113 H (74-99) mg/dL Calcium 8.3 L (8.4-10.2) mg/dL Magnesium 1.5 L (1.6-2.3) mg/dL AST 43 H (14-36) U/L Urine Appearance (Clear) Urine Nitrite (Negative) Ur Leukocyte Esterase (Negative) Urine WBC (0-5) /hpf Ur Squamous Epith Cells (0-4) /hpf Urine Bacteria (None) /hpf Urine Mucus (None) /hpf Coronavirus (PCR) Detected A (Not Detectd) 09/08/20 09/09/20 09/09/20 Range/Units 15:57 09:07 09:08 WBC 2.7 L (3.8-10.6) k/uL Plt Count 146 L (150-450) k/uL Lymphocytes # 0.8 L (1.0-4.8) k/uL Lymphocytes # (Manual) (1.0-4.8) k/uL D-Dimer 0.89 H (<0.60) mg/L FEU Sodium (137-145) mmol/L Glucose (74-99) mg/dL Calcium (8.4-10.2) mg/dL Magnesium (1.6-2.3) mg/dL AST (14-36) U/L Urine Appearance Cloudy H (Clear) Urine Nitrite Positive H (Negative) Ur Leukocyte Esterase Large H (Negative) Urine WBC 74 H (0-5) /hpf Ur Squamous Epith Cells 7 H (0-4) /hpf Urine Bacteria Rare H (None) /hpf Urine Mucus Rare H (None) /hpf Coronavirus (PCR) (Not Detectd) Microbiology - Last 24 Hours (Table) 09/08/20 15:57 Urine Culture - Preliminary Urine,Voided
[2020-09-09] MEDS: LORazepam 0.5 MG TAB PO SCH (20:01)
[2020-09-09] MEDS: ASPIRIN 81 MG PO SCH (20:01)
[2020-09-10] MEDS: ONDANSETRON ODT 4 MG TAB PO SCH (10:14)
[2020-09-10] MEDS: lisinopriL 10 MG TAB PO SCH (10:14)
[2020-09-10] MEDS: ZINC SULFATE 220 MG CAP PO SCH (10:14)
[2020-09-10] MEDS: ASCORBIC ACID 500 MG TAB PO SCH (10:15)
[2020-09-10] MEDS: LORATADINE 10 MG TAB PO SCH (10:15)
[2020-09-10] MEDS: LEVOTHYROXINE 125 MCG TAB PO SCH (10:15)
[2020-09-10] MEDS: amLODIPine 5 MG TAB PO SCH (10:15)
[2020-09-10] MEDS: CHOLECALCIFEROL 400 UNIT TAB PO SCH (10:16)
[2020-09-10] MEDS: DEXAMETHASONE SOD PHOSPHATE 10 MG/ML 1 ML VIAL IV SCH (10:17)
[2020-09-10] MEDS: ENOXAPARIN 40 MG/0.4 ML SYRINGE SQ SCH (10:20)
[2020-09-10] MEDS: PANTOPRAZOLE 40 MG TABLET PO SCH (10:20)
--- NOTE | 2020-09-10 13:51 | P.PN ---
Subjective Progress Note Date: 09/10/20 Principal diagnosis: CoVID 19 infection This a very pleasant 89-year-old female patient who we have seen in consultation yesterday. She was found to have. 19 infection. Possible urinary tract infection. She did not have any pulmonary complaints. No hypoxemia. She is seen today in follow-up. She is awake and alert in no acute distress. She is maintaining O2 saturations in the 90s on room air. Urine culture positive for gram-negative bacilli. Blood cultures revealing no growth to date. White count 2.7. Hemoglobin 13.6. D-dimer 0.89. Sodium 139. Potassium 3.5. Creatinine 0.7. She remains on ceftriaxone. Continued on vitamin C, vitamin D, Lovenox, dexamethasone, zinc. Objective - Vital Signs Vital signs: Vital Signs Temp 97.4 F L 09/10/20 05:00 Pulse 61 09/10/20 05:00 Resp 16 09/10/20 05:00 BP 155/77 09/10/20 05:00 Pulse Ox 94 L 09/10/20 05:00 Intake & Output 09/09/20 09/10/20 09/10/20 18:59 06:59 18:59 Intake Total 240 Output Total 1000 100 Balance -760 -100 Intake: Oral 240 Output: Urine 1000 100 Other: Voiding Method Bedside Commode Bedside Commode Bedside Commode Bedpan Bedpan Bedpan - Exam GENERAL EXAM: Alert, pleasant 89-year-old female patient, on room air,, comforta ble in no apparent distress. HEAD: Normocephalic. EYES: Normal reaction of pupils, equal size. NOSE: Clear with pink turbinates. THROAT: No erythema or exudates. NECK: No masses, no JVD. CHEST: No chest wall deformity. LUNGS: Equal air entry with no crackles, wheeze, rhonchi or dullness. CVS: S1 and S2 normal with no audible murmur, regular rhythm. ABDOMEN: No hepatosplenomegaly, normal bowel sounds, no guarding or rigidity. SPINE: No scoliosis or deformity SKIN: No rashes CENTRAL NERVOUS SYSTEM: No focal deficits, tone is normal in all 4 extremities. EXTREMITIES: There is no peripheral edema. No clubbing, no cyanosis. Peripheral pulses are intact. - Labs CBC & Chem 7: 09/09/20 09:08 09/09/20 09:07 Labs: Abnormal Lab Results - Last 24 Hours (Table) 09/09/20 Range/Units 09:07 BUN 8.0 L (9.0-27.0) mg/dL BUN/Creatinine Ratio 11.43 L (12.00-20.00) Ratio Calcium 8.3 L (8.7-10.3) mg/dL Total Protein 5.4 L (6.2-8.2) g/dL Albumin 3.40 L (3.80-4.90) g/dL Microbiology - Last 24 Hours (Table) 09/08/20 20:00 Blood Culture - Preliminary Blood No Growth after 24 hours 09/08/20 15:57 Urine Culture - Preliminary Urine,Voided Gram Neg Bacilli Assessment and Plan Assessment: 1 CoVID 19 infection, no hypoxemia or pulmonary complaints, on room air 2 Urinary tract infection secondary to gram-negative bacilli 3 Gastroesophageal reflux disease 4 History of hypertension 5 Osteoarthritis 6 Hypothyroidism 7 Chronic constipation 8 Chronic neck and back pain Plan: The patient was seen and evaluated by Dr. Silvia Veronica from the pulmonary standpoint Home once cleared medically I, the cosigning physician, performed a history & physical examination of the patient. Lungs sounds are clear. Maintaining good O2 saturations in the 90s on room air. I discussed the assessment and plan of care with my nurse practitioner, Suzie Madison. I attest to the above note as dictated by her.
--- NOTE | 2020-09-10 15:46 | P.PN ---
Subjective Progress Note Date: 09/10/20 This is an 89-year-old female patient of mine with history of hypertension, gastroesophageal reflux disease, hypothyroidism, chronic pain syndrome, seasonal ALLERGIES. Patient presented to [facility] emergency center due to generalized weakness and cough. Patient was found to be lethargic by her son at home. Son had recently been exposed to cold.. Patient denies having any shortness of breath. No headache. No chest pain. Denies fever or chills. No abdominal pain, no nausea or vomiting, no diarrhea. And no loss of taste. Patient was afebrile, heart rate 64, blood pressure 133/66, pulse ox 99% on room air. The VBC 2.7, hemoglobin 13.5, platelets 154. EKG was a sinus rhythm with no acute ST changes with heart rate of 64 bpm. Chest x-ray showed no acute abnormality. COVID-19 positive. Sodium 133 otherwise electrolytes and renal function normal. Blood sugar 113. Lactic acid 1.8. Troponin negative. Urinalysis was cloudy, leukoesterase large, WBC 74. Patient received 1 L of IV fluids, ceftriaxone, admitted to the [facility] floor and consult for pulmonary medicine and infectious disease. 09/09: Patient has been afebrile, heart rate 84, blood pressure 135/76, pulse ox 91% on 2 L nasal cannula. Repeat blood work reveals a VBC 2.7, hemoglobin 13.6, platelet count 146. D-dimer 0.89. Urine culture is in progress. Consult in place with pulmonary medicine and infectious disease. 09/10: Patient states that she is breathing well today. She states she has a little bit of cough but is improved from yesterday. She denies having any abdominal pain. No diarrhea. Patient has been afebrile, heart rate 69, blood pressure 126/74, pulse ox 94% on room air. The patient has been seen by infectious disease and pulmonary medicine. She has been cleared for discharge but there is concern about discharge planning and safety at home. Son is normally her caregiver but he is currently too weak to care for her. We'll plan to monitor patient one more night and plan for discharge tomorrow. Objective - Vital Signs Vital signs: Vital Signs Temp 97.5 F L 09/10/20 11:40 Pulse 69 09/10/20 11:40 Resp 16 09/10/20 11:40 BP 126/74 09/10/20 11:40 Pulse Ox 94 L 09/10/20 11:40 Intake & Output 09/09/20 09/10/20 09/10/20 18:59 06:59 18:59 Intake Total 240 Output Total 1000 100 Balance -760 -100 Intake: Oral 240 Output: Urine 1000 100 Other: Voiding Method Bedside Commode Bedside Commode Bedside Commode Bedpan Bedpan Bedpan - Exam Review of Systems Constitutional: Reports anorexia, Reports chronic pain, Reports fatigue, Reports lethargy, Reports malaise, Reports poor appetite, Reports weakness, Denies chills, Denies fever Eyes: denies blurred vision, denies pain Ears, nose, mouth and throat: Denies dysphagia, Denies headache, Denies nasal congestion, Denies nasal discharge, Denies sore throat Cardiovascular: Denies chest pain, Denies decreased exercise tolerance, Denies dyspnea on exertion, Denies edema, Denies leg edema, Denies lightheadedness, Denies shortness of breath, Denies syncope Respiratory: Reports cough, Reports cough with sputum, Reports respiratory infections, Denies dyspnea, Denies excessive sputum, Denies hemoptysis, Denies home oxygen, Denies wheezing Gastrointestinal: Reports loss of appetite, Denies abdominal pain, Denies BRBPR, Denies diarrhea, Denies nausea, Denies vomiting Genitourinary: Denies dysuria, Denies hematuria, Denies urgency, Denies urinary frequency Menstruation: Reports postmenopausal Musculoskeletal: Reports muscle weakness, Denies frequent falls, Denies myalgias Integumentary: Denies pruritus, Denies rash, Denies wounds Neurological: Reports change in mentation, Reports confusion, Denies numbness, Denies weakness Psychiatric: Denies anxiety, Denies depression Endocrine: Denies fatigue, Denies weight change Physical examination: HEENT: Head is atraumatic, normocephalic, pupils were equal round reactive to light and accommodation, extraocular muscle movement intact, mucous membranes of the mouth are somewhat dry. Neck: Supple, no JVD, no carotid bruit. Chest: Decreased breath sounds at bases few rhonchi no extremity wheezes, no chest wall tenderness, no intercostal retractions. Heart: First heart sound is depressed, second heart sounds normal, there is no gallop or murmur. Abdomen: Soft, minimal nonspecific tenderness no rebound or guarding positive bowel sounds Extremities: No pedal edema, dorsalis pedis +1 bilaterally. Neurologic examination: Patient is awake alert and oriented 3, cranial nerves 3-12 are grossly intact, muscle power 4 out of 5 in upper and lower extremities bilaterally. - Labs CBC & Chem 7: 09/09/20 09:08 09/09/20 09:07 Labs: Abnormal Lab Results - Last 24 Hours (Table) 09/09/20 Range/Units 09:07 BUN 8.0 L (9.0-27.0) mg/dL BUN/Creatinine Ratio 11.43 L (12.00-20.00) Ratio Calcium 8.3 L (8.7-10.3) mg/dL Total Protein 5.4 L (6.2-8.2) g/dL Albumin 3.40 L (3.80-4.90) g/dL Microbiology - Last 24 Hours (Table) 09/08/20 20:00 Blood Culture - Preliminary Blood No Growth after 24 hours 09/08/20 15:57 Urine Culture - Preliminary Urine,Voided Gram Neg Bacilli Assessment and Plan Assessment: 1. COVID-19 infection. Continue vitamin C 500 mg daily, vitamin D 400 units daily, Decadron 6 mg IV daily, Lovenox 40 mg subcu daily, zinc 220 mg daily. Consult with infectious disease and pulmonary medicine appreciated. Oxygenation is stable at this point. 2. Acute urinary tract infection. Continue Rocephin 1 g daily, urine culture in progress. 3. Acute metabolic encephalopathy secondary to Covid 19 infection and acute urinary tract infection. Continue treatment as above. 4. Hypertension. Continue amlodipine 5 mg daily, lisinopril 10 mg daily 5. Hypothyroidism. Continue levothyroxine 125 g daily. 6. Seasonal ALLERGIES. Stable. 7. Chronic pain. Continue fentanyl patch 75 g daily. 8. GI prophylaxis. Protonix. 9. DVT prophylaxis. Lovenox. Admit to inpatient. Estimate length of stay 2 midnights Patient is full code. Discharge plan: Home tomorrow
--- NOTE | 2020-09-10 16:32 | P.PN ---
Subjective Progress Note Date: 09/10/20 HISTORY OF PRESENT ILLNESS This is an 89-year-old female presented to the hospital due to genera lized weakness and cough, lethargy and shortness of breath. She has a small amount of cough with clear phlegm. Symptoms started yesterday. She also has a touch of nausea. No diarrhea. She denies any dysuria. No chest pain. COVID- 19 was positive. Chest x-ray showed no acute abnormality. Patient was started on IV fluids, ceftriaxone and admitted to the [facility] floor. Patient has not experienced any hypoxia. Symptoms were onset of yesterday 09/10: Patient states that she is breathing well today. She continues to have a little cough but improved from yesterday. She denies having any abdominal pain, no diarrhea, no nausea or vomiting. Patient did not qualify for Remdesivir but continued on Lovenox, dexamethasone and vitamins. Patient is not requiring oxygen and pulse oxing 94% on room air, afebrile, heart rate 78, blood pressure 125/74. She was anxious to be discharged home today. PHYSICAL EXAMINATION Gen: This is an 89-year-old female. She is resting bed appears to be comfortable. HEENT: Head is atraumatic, normocephalic. Pupils equal, round. Sclerae is anicte camilo. NECK: Supple. No JVD. No lymphadenopathy. No thyromegaly. LUNGS: Clear to auscultation. No wheezes or rhonchi. No intercostal retractions. HEART: Regular rate and rhythm. No murmur. ABDOMEN: Soft. Bowel sounds are present. No masses. No tenderness. EXTREMITIES: No pedal edema. NEUROLOGICAL: Patient is awake, alert and oriented x3. ASSESSMENT COVID-19 infection PLAN Patient does not qualify for Remdesivir Continue ceftriaxone Continue supplements with vitamin C, vitamin D and zinc Continue Lovenox and dexamethasone Patient is cleared from infectious disease for discharge home. The above dictated assessment and findings were discussed with Dr. Sarmiento. The impression and plan of care have been directed as dictated. Narcisa Belle nurse practitioner acting as scribe for Dr. Sarmiento. Objective - Vital Signs Vital signs: Vital Signs Temp 97.4 F L 09/10/20 05:00 Pulse 61 09/10/20 05:00 Resp 16 09/10/20 05:00 BP 155/77 12/04/20 05:00 Pulse Ox 94 L 09/10/20 05:00 Intake & Output 09/09/20 09/10/20 09/10/20 18:59 06:59 18:59 Intake Total 240 Output Total 1000 100 Balance -760 -100 Intake: Oral 240 Output: Urine 1000 100 Other: Voiding Method Bedside Commode Bedside Commode Bedside Commode Bedpan Bedpan Bedpan - Labs CBC & Chem 7: 09/09/20 09:08 09/09/20 09:07 Labs: Abnormal Lab Results - Last 24 Hours (Table) 09/09/20 Range/Units 09:07 BUN 8.0 L (9.0-27.0) mg/dL BUN/Creatinine Ratio 11.43 L (12.00-20.00) Ratio Calcium 8.3 L (8.7-10.3) mg/dL Total Protein 5.4 L (6.2-8.2) g/dL Albumin 3.40 L (3.80-4.90) g/dL Microbiology - Last 24 Hours (Table) 09/08/20 20:00 Blood Culture - Preliminary Blood No Growth after 24 hours 09/08/20 15:57 Urine Culture - Preliminary Urine,Voided Gram Neg Bacilli
[2020-09-10] MEDS: ASPIRIN 81 MG PO SCH (20:56)
[2020-09-10] MEDS: LORazepam 0.5 MG TAB PO SCH (20:56)
[2020-09-11] MEDS: LEVOTHYROXINE 125 MCG TAB PO SCH (06:36)
[2020-09-11] MEDS: DEXAMETHASONE SOD PHOSPHATE 10 MG/ML 1 ML VIAL IV SCH (09:11)
[2020-09-11] MEDS: amLODIPine 5 MG TAB PO SCH (09:11)
[2020-09-11] MEDS: ZINC SULFATE 220 MG CAP PO SCH (09:11)
[2020-09-11] MEDS: lisinopriL 10 MG TAB PO SCH (09:11)
[2020-09-11] MEDS: ONDANSETRON ODT 4 MG TAB PO SCH (09:11)
[2020-09-11] MEDS: ASCORBIC ACID 500 MG TAB PO SCH (09:11)
[2020-09-11] MEDS: CHOLECALCIFEROL 400 UNIT TAB PO SCH (09:12)
[2020-09-11] MEDS: PANTOPRAZOLE 40 MG TABLET PO SCH (09:12)
[2020-09-11] MEDS: LORATADINE 10 MG TAB PO SCH (09:12)
[2020-09-11] MEDS: ENOXAPARIN 40 MG/0.4 ML SYRINGE SQ SCH (09:13)
--- NOTE | 2020-09-11 13:07 | P.PN ---
Subjective Progress Note Date: 09/11/20 Principal diagnosis: CoVID 19 infection This a very pleasant 89-year-old female patient who we have seen in consultation yesterday. She was found to have. 19 infection. Possible urinary tract infection. She did not have any pulmonary complaints. No hypoxemia. She is seen today in follow-up. She is awake and alert in no acute distress. She is maintaining O2 saturations in the 90s on room air. Urine culture positive for gram-negative bacilli. Blood cultures revealing no growth to date. White count 2.7. Hemoglobin 13.6. D-dimer 0.89. Sodium 139. Potassium 3.5. Creatinine 0.7. She remains on ceftriaxone. Continued on vitamin C, vitamin D, Lovenox, dexamethasone, zinc. Patient is seen today 09/11/2020 on follow-up on the regular medical floor. She is awake and alert in no acute distress. She is maintaining good O2 saturations in the mid 90s on room air. She's been afebrile. Urine culture positive for E. coli. Blood culture revealed no growth. CoVID 19 screen positive. White count 2.7. Hemoglobin 13.6. Lymphocytes 0.8. D-dimer 0.89. Creatinine 0.7. She remains on ceftriaxone. Continued on dexamethasone and Lovenox along with vitamin supplements. Objective - Vital Signs Vital signs: Vital Signs Temp 98.1 F 09/11/20 05:00 Pulse 66 09/11/20 05:00 Resp 16 09/11/20 05:00 BP 161/90 09/11/20 05:00 Pulse Ox 96 09/11/20 05:00 Intake & Output 09/10/20 09/11/20 09/11/20 18:59 06:59 18:59 Intake Total 950 Output Total 300 Balance -300 950 Intake: Oral 950 Output: Urine 300 Other: Voiding Method Bedside Commode Bedside Commode Bedpan Bedpan - Exam GENERAL EXAM: Alert, pleasant 89-year-old female patient, on room air,, comfortable in no apparent distress. HEAD: Normocephalic. EYES: Normal reaction of pupils, equal size. NOSE: Clear with pink turbinates. THROAT: No erythema or exudates. NECK: No masses, no JVD. CHEST: No chest wall deformity. LUNGS: Equal air entry with no crackles, wheeze, rhonchi or dullness. CVS: S1 and S2 normal with no audible murmur, regular rhythm. ABDOMEN: No hepatosplenomegaly, normal bowel sounds, no guarding or rigidity. SPINE: No scoliosis or deformity SKIN: No rashes CENTRAL NERVOUS SYSTEM: No focal deficits, tone is normal in all 4 extremities. EXTREMITIES: There is no peripheral edema. No clubbing, no cyanosis. Shannon pheral pulses are intact. - Labs CBC & Chem 7: 09/09/20 09:08 09/09/20 09:07 Labs: Microbiology - Last 24 Hours (Table) 09/08/20 20:00 Blood Culture - Preliminary Blood No Growth after 48 hours 09/08/20 15:57 Urine Culture - Final Urine,Voided Escherichia coli Assessment and Plan Assessment: 1 CoVID 19 infection, no hypoxemia or pulmonary complaints, on room air 2 Urinary tract infection secondary to E. coli, currently on ceftriaxone 3 Gastroesophageal reflux disease 4 History of hypertension 5 Osteoarthritis 6 Hypothyroidism 7 Chronic constipation 8 Chronic neck and back pain Plan: The patient was seen and evaluated by Dr. Silvia Veronica from the pulmonary standpoint on room air Home once cleared medically I, the cosigning physician, performed a history & physical examination of the patient. Lungs sounds are clear. Maintaining good O2 saturations in the 90s on room air. I discussed the assessment and plan of care with my nurse practitioner, Suzie Madison. I attest to the above note as dictated by her.
[2020-09-11] MEDS: LEVOFLOXACIN 500MG-D5W PMX 500 MG in DEXTROSE/WATER 1 100ML.BAG IVPB SCH (18:58)
[2020-09-11] MEDS: ASPIRIN 81 MG PO SCH (20:15)
[2020-09-11] MEDS: LORazepam 0.5 MG TAB PO SCH (20:15)
--- NOTE | 2020-09-11 23:02 | PN ---
PROGRESS NOTE DATE OF SERVICE: 09/11/2020 REASON FOR FOLLOWUP: Pneumonia and urinary tract infection. INTERVAL HISTORY: Patient is currently afebrile. The patient is breathing more comfortably. Patient denies having any chest pain or shortness of breath. Minimal cough. No nausea, no vomiting. No abdominal pain or diarrhea. PHYSICAL EXAMINATION: Blood pressure 127/76, pulse of 81, temperature 97.6, and general description is an elderly female lying in bed in no distress. Respiratory system: Unlabored breathing, decreased breath sounds in the base, with no wheeze. Heart S1-S2 regular rate and rhythm. ABDOMEN: Soft, no tenderness. LABS: Hemoglobin 17, Proscar 2.7. Urine with E coli. Rocephin, switch to Levaquin. DIAGNOSTIC IMPRESSION AND PLAN: 1. Patient with positive Covid 19 test in this patient who did not have significant respiratory failure medications, currently 97% on room air. 2. 3. She will be continued on Decadron and Lovenox and . 4. E coli urinary tract infection. Antibiotic adjusted to Levaquin to continue for about a week and continue supportive care. MMODL / IJN: [id number] /
[2020-09-12] MEDS: LEVOTHYROXINE 125 MCG TAB PO SCH (06:09)
[2020-09-12] MEDS: ONDANSETRON ODT 4 MG TAB PO SCH (08:09)
[2020-09-12] MEDS: ZINC SULFATE 220 MG CAP PO SCH (08:09)
[2020-09-12] MEDS: amLODIPine 5 MG TAB PO SCH (08:09)
[2020-09-12] MEDS: ASCORBIC ACID 500 MG TAB PO SCH (08:09)
[2020-09-12] MEDS: ENOXAPARIN 40 MG/0.4 ML SYRINGE SQ SCH (08:10)
[2020-09-12] MEDS: PANTOPRAZOLE 40 MG TABLET PO SCH (08:10)
[2020-09-12] MEDS: LORATADINE 10 MG TAB PO SCH (08:10)
[2020-09-12] MEDS: lisinopriL 10 MG TAB PO SCH (08:10)
[2020-09-12] MEDS: DEXAMETHASONE SOD PHOSPHATE 10 MG/ML 1 ML VIAL IV SCH (08:10)
[2020-09-12] MEDS: CHOLECALCIFEROL 400 UNIT TAB PO SCH (09:19)
--- NOTE | 2020-09-12 13:27 | P.PN ---
Subjective Progress Note Date: 09/12/20 Principal diagnosis: CoVID 19 infection This a very pleasant 89-year-old female patient who we have seen in consultation yesterday. She was found to have. 19 infection. Possible urinary tract infection. She did not have any pulmonary complaints. No hypoxemia. She is seen today in follow-up. She is awake and alert in no acute distress. She is maintaining O2 saturations in the 90s on room air. Urine culture positive for gram-negative bacilli. Blood cultures revealing no growth to date. White count 2.7. Hemoglobin 13.6. D-dimer 0.89. Sodium 139. Potassium 3.5. Creatinine 0.7. She remains on ceftriaxone. Continued on vitamin C, vitamin D, Lovenox, dexamethasone, zinc. Patient is seen today 09/11/2020 on follow-up on the regular medical floor. She is awake and alert in no acute distress. She is maintaining good O2 saturations in the mid 90s on room air. She's been afebrile. Urine culture positive for E. coli. Blood culture revealed no growth. CoVID 19 screen positive. White count 2.7. Hemoglobin 13.6. Lymphocytes 0.8. D-dimer 0.89. Creatinine 0.7. She remains on ceftriaxone. Continued on dexamethasone and Lovenox along with vitamin supplements. The patient is seen today 09/12/2020 in follow-up on the regular medical floor. She remains awake and alert in no acute distress. She is maintaining good O2 saturation in the mid 90s on room air. She's been afebrile. Hemodynamically stable. Most of her complaints and that of generalized weakness. She did test positive for E. coli UTI. Blood cultures reveal no growth. She remains on Levaquin. She is continued on dexamethasone, Lovenox, vitamin C, vitamin D, zinc. Objective - Vital Signs Vital signs: Vital Signs Temp 97.5 F L 09/12/20 10:30 Pulse 98 09/12/20 10:30 Resp 16 09/12/20 10:30 BP 105/73 09/12/20 10:30 Pulse Ox 98 09/12/20 10:30 Intake & Output 09/11/20 09/12/20 09/12/20 18:59 06:59 18:59 Intake Total 830 Balance 830 Intake: Oral 830 Other: Voiding Method Bedside Commode Bedside Commode Bedside Commode Bedpan Bedpan Bedpan # Voids 2 - Exam GENERAL EXAM: Alert, pleasant 89-year-old female patient, on room air, comfortable in no apparent distress. HEAD: Normocephalic. EYES: Normal reaction of pupils, equal size. NOSE: Clear with pink turbinates. THROAT: No erythema or exudates. NECK: No masses, no JVD. CHEST: No chest wall deformity. LUNGS: Equal air entry with no crackles, wheeze, rhonchi or dullness. CVS: S1 and S2 normal with no audible murmur, regular rhythm. ABDOMEN: No hepatosplenomegaly, normal bowel sounds, no guarding or rigidity. SPINE: No scoliosis or deformity SKIN: No rashes CENTRAL NERVOUS SYSTEM: No focal deficits, tone is normal in all 4 extremities. EXTREMITIES: There is no peripheral edema. No clubbing, no cyanosis. Peripheral pulses are intact. - Labs CBC & Chem 7: 09/09/20 09:08 09/09/20 09:07 Labs: Microbiology - Last 24 Hours (Table) 09/08/20 20:00 Blood Culture - Preliminary Blood No Growth after 72 hours Assessment and Plan Assessment: 1 CoVID 19 infection, no hypoxemia or pulmonary complaints, on room air 2 Urinary tract infection secondary to E. coli, currently on Levaquin 3 Gastroesophageal reflux disease 4 History of hypertension 5 Osteoarthritis 6 Hypothyroidism 7 Chronic constipation 8 Chronic neck and back pain Plan: The patient was seen and evaluated by Dr. Vega She remains stable from the pulmonary standpoint Home once cleared medically I, the cosigning physician, performed a history & physical examination of the patient. Lungs sounds are clear. Maintaining good O2 saturations in the 90s on room air. I discussed the assessment and plan of care with my nurse practitioner, Suzie Madison. I attest to the above note as dictated by her.
--- NOTE | 2020-09-12 18:20 | P.PN ---
Subjective Progress Note Date: 09/11/20 Principal diagnosis: Acute Covid 19 infection. This is an 89-year-old female patient of mine with history of hypertension, gastroesophageal reflux disease, hypothyroidism, chronic pain syndrome, seasonal ALLERGIES. Patient presented to [facility] emergency center due to generalized weakness and cough. Patient was found to be lethargic by her son at home. Son had recently been exposed to cold.. Patient denies having any shortness of breath. No headache. No chest pain. Denies fever or chills. No abdominal pain, no nausea or vomiting, no diarrhea. And no loss of taste. Patient was afebrile, heart rate 64, blood pressure 133/66, pulse ox 99% on room air. The VBC 2.7, hemoglobin 13.5, platelets 154. EKG was a sinus rhythm with no acute ST changes with heart rate of 64 bpm. Chest x-ray showed no acute abnormality. COVID-19 positive. Sodium 133 otherwise electrolytes and renal function normal. Blood sugar 113. Lactic acid 1.8. T roponin negative. Urinalysis was cloudy, leukoesterase large, WBC 74. Patient received 1 L of IV fluids, ceftriaxone, admitted to the [facility] floor and consult for pulmonary medicine and infectious disease. 09/09: Patient has been afebrile, heart rate 84, blood pressure 135/76, pulse ox 91% on 2 L nasal cannula. Repeat blood work reveals a VBC 2.7, hemoglobin 13.6, platelet count 146. D-dimer 0.89. Urine culture is in progress. Consult in place with pulmonary medicine and infectious disease. 09/10: Patient states that she is breathing well today. She states she has a little bit of cough but is improved from yesterday. She denies having any abdominal pain. No diarrhea. Patient has been afebrile, heart rate 69, blood pressure 126/74, pulse ox 94% on room air. The patient has been seen by infectious disease and pulmonary medicine. She has been cleared for discharge but there is concern about discharge planning and safety at home. Son is normally her caregiver but he is currently too weak to care for her. We'll plan to monitor patient one more night and plan for discharge tomorrow. 09/11/2020 Patient is currently lying in the bed comfortable awake alert and oriented 3. Saturating around low 90s on room air. Patient still feels very weak and lack of energy. She has been afebrile. Urine culture showed E. coli. Antibiotics changed to Levaquin as per sensitivity report. Previously laboratory data reviewed. Patient is being continued on dexamethasone and Lovenox and vitamin supplementation. Current medications reviewed. Objective - Vital Signs Vital signs: Vital Signs Temp 97.5 F L 09/11/20 11:00 Pulse 57 L 09/11/20 11:00 Resp 16 09/11/20 11:00 BP 153/80 09/11/20 11:00 Pulse Ox 96 09/11/20 11:00 Intake & Output 09/10/20 09/11/20 09/11/20 18:59 06:59 18:59 Intake Total 950 Output Total 300 Balance -300 950 Intake: Oral 950 Output: Urine 300 Other: Voiding Method Bedside Commode Bedside Commode Bedside Commode Bedpan Bedpan Bedpan - Exam Physical examination: HEENT: Head is atraumatic, normocephalic, pupils were equal round reactive to light and accommodation, extraocular muscle movement intact, mucous membranes of the mouth are somewhat dry. Neck: Supple, no JVD, no carotid bruit. Chest: Decreased breath sounds at bases few rhonchi no extremity wheezes, no chest wall tenderness, no intercostal retractions. Heart: First heart sound is depressed, second heart sounds normal, there is no gallop or murmur. Abdomen: Soft, minimal nonspecific tenderness no rebound or guarding positive bowel sounds Extremities: No pedal edema, dorsalis pedis +1 bilaterally. Neurologic examination: Patient is awake alert and oriented 3, cranial nerves 3-12 are grossly intact, muscle power 4 out of 5 in upper and lower extremities bilaterally. - Labs CBC & Chem 7: 09/09/20 09:08 09/09/20 09:07 Labs: Microbiology - Last 24 Hours (Table) 09/08/20 20:00 Blood Culture - Preliminary Blood No Growth after 48 hours 09/08/20 15:57 Urine Culture - Final Urine,Voided Escherichia coli Assessment and Plan Assessment: 1. COVID-19 infection. Continue vitamin C 500 mg daily, vitamin D 400 units daily, Decadron 6 mg IV daily, Lovenox 40 mg subcu daily, zinc 220 mg daily. Consult with infectious disease and pulmonary medicine appreciated. Oxygenation is stable at this point. 2. Acute urinary tract infection. Continue Rocephin 1 g daily, urine culture showed E. coli.. Antibiotics changed to Levaquin. 3. Acute metabolic encephalopathy secondary to Covid 19 infection and acute urinary tract infection. Continue treatment as above. 4. Hypertension. Continue amlodipine 5 mg daily, lisinopril 10 mg daily 5. Hypothyroidism. Continue levothyroxine 125 g daily. 6. Seasonal ALLERGIES. Stable. 7. Chronic pain. Continue fentanyl patch 75 g daily. 8. GI prophylaxis. Protonix. 9. DVT prophylaxis. Lovenox. Admit to inpatient. Estimate length of stay 2 midnights Patient is full code. Time with Patient: Greater than 30
--- NOTE | 2020-09-12 18:23 | P.PN ---
Subjective Progress Note Date: 09/12/20 Principal diagnosis: Acute Covid 19 infection. This is an 89-year-old female patient of mine with history of hypertension, gastroesophageal reflux disease, hypothyroidism, chronic pain syndrome, seasonal ALLERGIES. Patient presented to [facility] emergency center due to generalized weakness and cough. Patient was found to be lethargic by her son at home. Son had recently been exposed to cold.. Patient denies having any shortness of breath. No headache. No chest pain. Denies fever or chills. No abdominal pain, no nausea or vomiting, no diarrhea. And no loss of taste. Patient was afebrile, heart rate 64, blood pressure 133/66, pulse ox 99% on room air. The VBC 2.7, hemoglobin 13.5, platelets 154. EKG was a sinus rhythm with no acute ST changes with heart rate of 64 bpm. Chest x-ray showed no acute abnormality. COVID-19 positive. Sodium 133 otherwise electrolytes and renal function normal. Blood sugar 113. Lactic acid 1.8. T roponin negative. Urinalysis was cloudy, leukoesterase large, WBC 74. Patient received 1 L of IV fluids, ceftriaxone, admitted to the [facility] floor and consult for pulmonary medicine and infectious disease. 09/09: Patient has been afebrile, heart rate 84, blood pressure 135/76, pulse ox 91% on 2 L nasal cannula. Repeat blood work reveals a VBC 2.7, hemoglobin 13.6, platelet count 146. D-dimer 0.89. Urine culture is in progress. Consult in place with pulmonary medicine and infectious disease. 09/10: Patient states that she is breathing well today. She states she has a little bit of cough but is improved from yesterday. She denies having any abdominal pain. No diarrhea. Patient has been afebrile, heart rate 69, blood pressure 126/74, pulse ox 94% on room air. The patient has been seen by infectious disease and pulmonary medicine. She has been cleared for discharge but there is concern about discharge planning and safety at home. Son is normally her caregiver but he is currently too weak to care for her. We'll plan to monitor patient one more night and plan for discharge tomorrow. 09/11/2020 Patient is currently lying in the bed comfortable awake alert and oriented 3. Saturating around low 90s on room air. Patient still feels very weak and lack of energy. She has been afebrile. Urine culture showed E. coli. Antibiotics changed to Levaquin as per sensitivity report. Previously laboratory data reviewed. Patient is being continued on dexamethasone and Lovenox and vitamin supplementation. 09/12/2020 Patient is currently resting in the bed comfortably. No complaints of chest pain or shortness of breath. Breathing status is better but patient states that she feels weak even with walking to the bathroom. PT OT will be consulted. Continued on antibiotics in the form of Levaquin. Patient is also on dexamethasone and Lovenox and vitamin supplementation. Anticipate discharge to home with physical therapy tomorrow. Current medications reviewed. Objective - Vital Signs Vital signs: Vital Signs Temp 97.5 F L 09/12/20 10:30 Pulse 98 09/12/20 10:30 Resp 16 09/12/20 10:30 BP 105/73 09/12/20 10:30 Pulse Ox 98 09/12/20 10:30 Intake & Output 09/11/20 09/12/20 09/12/20 18:59 06:59 18:59 Intake Total 830 Balance 830 Intake: Oral 830 Other: Voiding Method Bedside Commode Bedside Commode Bedside Commode Bedpan Bedpan Bedpan # Voids 2 - Exam Physical examination: HEENT: Head is atraumatic, normocephalic, pupils were equal round reactive to light and accommodation, extraocular muscle movement intact, mucous membranes of the mouth are somewhat dry. Neck: Supple, no JVD, no carotid bruit. Chest: Decreased breath sounds at bases few rhonchi no extremity wheezes, no chest wall tenderness, no intercostal retractions. Heart: First heart sound is depressed, second heart sounds normal, there is no gallop or murmur. Abdomen: Soft, minimal nonspecific tenderness no rebound or guarding positive bowel sounds Extremities: No pedal edema, dorsalis pedis +1 bilaterally. Neurologic examination: Patient is awake alert and oriented 3, cranial nerves 3-12 are grossly intact, muscle power 4 out of 5 in upper and lower extremities bilaterally. - Labs CBC & Chem 7: 09/09/20 09:08 09/09/20 09:07 Labs: Microbiology - Last 24 Hours (Table) 09/08/20 20:00 Blood Culture - Preliminary Blood No Growth after 72 hours Assessment and Plan Assessment: 1. COVID-19 infection. Continue vitamin C 500 mg daily, vitamin D 400 units daily, Decadron 6 mg IV daily, Lovenox 40 mg subcu daily, zinc 220 mg daily. Consult with infectious disease and pulmonary medicine appreciated. Oxygenation is stable at this point. 2. Acute urinary tract infection. Continue Rocephin 1 g daily, urine culture showed E. coli.. Antibiotics changed to Levaquin. For 5 days total. 3. Acute metabolic encephalopathy secondary to Covid 19 infection and acute urinary tract infection. Continue treatment as above. 4. Hypertension. Continue amlodipine 5 mg daily, lisinopril 10 mg daily 5. Hypothyroidism. Continue levothyroxine 125 g daily. 6. Seasonal ALLERGIES. Stable. 7. Chronic pain. Continue fentanyl patch 75 g daily. 8. GI prophylaxis. Protonix. 9. DVT prophylaxis. Lovenox. Patient is full code. Time with Patient: Greater than 30
[2020-09-12] MEDS: polyethylene glycoL 3350 17 GM POWD.PACK PO SCH (18:31)
[2020-09-12] MEDS: ASPIRIN 81 MG PO SCH (18:32)
[2020-09-12] MEDS: LEVOFLOXACIN 500MG-D5W PMX 500 MG in DEXTROSE/WATER 1 100ML.BAG IVPB SCH (19:19)
[2020-09-12] MEDS: SENNOSIDES 8.6 MG TAB PO SCH (20:51)
[2020-09-12] MEDS: LORazepam 0.5 MG TAB PO SCH (20:51)
--- NOTE | 2020-09-12 23:41 | PN ---
PROGRESS NOTE DATE OF SERVICE: 09/12/2020 REASON FOR FOLLOWUP: Pneumonia, urinary tract infection. INTERVAL HISTORY: Patient is currently afebrile. The patient is currently breathing comfortably on room air. Denies having any chest pain or shortness of breath. Minimal cough. No abdominal pain or diarrhea. PHYSICAL EXAMINATION: Blood pressure 107/79, pulse of 79, temperature 97.8. She is 98% on room air. General description is an elderly female up in the bed in no distress. Respiratory system: Unlabored breathing, decreased breath sounds in the bases. Heart S1, S2. Regular rate and rhythm. ABDOMEN: Soft, no tenderness. LABS: Hemoglobin 17.3, white count 2.7, BUN of 8, creatinine 0.7. DIAGNOSTIC IMPRESSION AND PLAN: 1. Patient admitted to the hospital with shortness of breath and weakness, which is multifactorial in this patient who did have positive Covid test, but no respiratory distress. Patient seems to have responded to Lovenox and zinc sulfate. 2. Patient with E coli urinary tract infection, covered with oral Levaquin. Continue supportive care. MMODL / IJN: [id number] /
[2020-09-13] MEDS: LEVOTHYROXINE 125 MCG TAB PO SCH (06:06)
[2020-09-13 06:38] LABS: Basophils % (A) 1 %; Eosinophils % (A) 0 %; HCT 43.7 % (34.0-46.0); HGB 14.3 gm/dL (11.4-16.0); Lymphocytes # (A) 0.8 k/uL (1.0-4.8); Lymphocytes % (A) 25 %; MCH 31.1 pg (25.0-35.0); MCHC 32.8 g/dL (31.0-37.0); MCV 94.8 fL (80.0-100.0); Mean Platelet Volume 7.6; Monocytes # (A) 0.4 k/uL (0-1.0); Monocytes % (A) 11 %; Neutrophils # (A) 2.1 k/uL (1.3-7.7); Neutrophils % (A) 62 %; Platelet Count 165 k/uL (150-450); RBC 4.61 m/uL (3.80-5.40); RDW 13.2 % (11.5-15.5); WBC 3.3 k/uL (3.8-10.6)
[2020-09-13 09:17] LABS: African American GFR (CKD) 94.3 (60.0-200.0); Anion Gap 6.1 mmol/L (4.00-12.00); Calcium 8.2 mg/dL (8.7-10.3); Carbon Dioxide 28.9 mmol/L (21.6-31.8); Non-African American GFR(CKD) 81.4 (60.0-200.0)
[2020-09-13] MEDS: ONDANSETRON ODT 4 MG TAB PO SCH (09:55)
[2020-09-13] MEDS: SENNOSIDES 8.6 MG TAB PO SCH ×2 (09:55→19:58)
[2020-09-13] MEDS: ASCORBIC ACID 500 MG TAB PO SCH (09:55)
[2020-09-13] MEDS: amLODIPine 5 MG TAB PO SCH (09:55)
[2020-09-13] MEDS: PANTOPRAZOLE 40 MG TABLET PO SCH (09:55)
[2020-09-13] MEDS: lisinopriL 10 MG TAB PO SCH (09:56)
[2020-09-13] MEDS: ZINC SULFATE 220 MG CAP PO SCH (09:56)
[2020-09-13] MEDS: LORATADINE 10 MG TAB PO SCH (09:56)
[2020-09-13] MEDS: DEXAMETHASONE SOD PHOSPHATE 10 MG/ML 1 ML VIAL IV SCH (09:56)
[2020-09-13] MEDS: ENOXAPARIN 40 MG/0.4 ML SYRINGE SQ SCH (09:57)
[2020-09-13] MEDS: CHOLECALCIFEROL 400 UNIT TAB PO SCH (09:57)
[2020-09-13] MEDS: polyethylene glycoL 3350 17 GM POWD.PACK PO SCH (11:37)
[2020-09-13] MEDS ORDERED: LIDOCAINE 4% CREAM 5 GM TUBE TOPICAL PRN (14:09)
--- NOTE | 2020-09-13 14:38 | P.PN ---
Subjective Progress Note Date: 09/13/20 89-year-old female patient being seen for a follow-up. Doing well. No specific complaints. She is on room air oxygen. She is looking for placement. The patient was advised 4 generalized weakness and cough and this was attributed to coronavirus Covid 19 infection. The patient's has hypertension, acid reflux and hypothyroidism and chronic pain. The patient was resuscitated IV fluids. The patient is currently on room air oxygen with a pulse is in the order of [id number]%. No nausea. No vomiting. No diarrhea. No abdominal pain. No altered mentation. Lungs are clear. Objective - Vital Signs Vital signs: Vital Signs Temp 97.4 F L 09/13/20 11:00 Pulse 99 09/13/20 11:00 Resp 18 09/13/20 11:00 BP 113/73 09/13/20 11:00 Pulse Ox 94 L 09/13/20 11:00 Intake & Output 09/12/20 09/13/20 09/13/20 18:59 06:59 18:59 Intake Total 400 790 Balance 400 790 Intake: Oral 400 790 Other: Voiding Method Bedside Commode Bedside Commode Bedside Commode Bedpan Bedpan Bedpan # Voids 1 - Exam GENERAL EXAM: Alert, pleasant 89-year-old female patient, on room air, comfortable in no apparent distress. HEAD: Normocephalic. EYES: Normal reaction of pupils, equal size. NOSE: Clear with pink turbinates. THROAT: No erythema or exudates. NECK: No masses, no JVD. CHEST: No chest wall deformity. LUNGS: Equal air entry with no crackles, wheeze, rhonchi or dullness. CVS: S1 and S2 normal with no audible murmur, regular rhythm. ABDOMEN: No hepatosplenomegaly, normal bowel sounds, no guarding or rigidity. SPINE: No scoliosis or deformity SKIN: No rashes CENTRAL NERVOUS SYSTEM: No focal deficits, tone is normal in all 4 extremities. EXTREMITIES: There is no peripheral edema. No clubbing, no cyanosis. Peripheral pulses are intact. - Labs CBC & Chem 7: 09/13/20 05:55 09/13/20 05:55 Labs: Abnormal Lab Results - Last 24 Hours (Table) 09/13/20 09/13/20 Range/Units 05:55 05:55 WBC 3.3 L (3.8-10.6) k/uL Lymphocytes # 0.8 L (1.0-4.8) k/uL BUN/Creatinine Ratio 35.00 H (12.00-20.00) Ratio Calcium 8.2 L (8.7-10.3) mg/dL Microbiology - Last 24 Hours (Table) 09/08/20 20:00 Blood Culture - Preliminary Blood No Growth after 96 hours Assessment and Plan Plan: 1 CoVID 19 infection, no hypoxemia or pulmonary complaints, on room air 2 Urinary tract infection secondary to E. coli, currently on Levaquin 3 Gastroesophageal reflux disease 4 History of hypertension 5 Osteoarthritis 6 Hypothyroidism 7 Chronic constipation 8 Chronic neck and back pain Plan: She remains stable from the pulmonary standpoint, the patient is looking for placement for now and she is interested in going to [facility] on [facility] or any other nursing facility. pulmonary and critical care services we'll sign off the case.
--- NOTE | 2020-09-13 14:46 | P.PN ---
Subjective Progress Note Date: 09/13/20 Acute Covid 19 infection. This is an 89-year-old female patient of mine with history of hyperte nsion, gastroesophageal reflux disease, hypothyroidism, chronic pain syndrome, seasonal ALLERGIES. Patient presented to [facility] emergency center due to generalized weakness and cough. Patient was found to be lethargic by her son at home. Son had recently been exposed to cold.. Patient denies having any shortness of breath. No headache. No chest pain. Denies fever or chills. No abdominal pain, no nausea or vomiting, no diarrhea. And no loss of taste. Patient was afebrile, heart rate 64, blood pressure 133/66, pulse ox 99% on room air. The VBC 2.7, hemoglobin 13.5, platelets 154. EKG was a sinus rhythm with no acute ST changes with heart rate of 64 bpm. Chest x-ray showed no acute abnormality. COVID-19 positive. Sodium 133 otherwise electrolytes and renal function normal. Blood sugar 113. Lactic acid 1.8. Troponin negative. Urinalysis was cloudy, leukoesterase large, WBC 74. Patient received 1 L of IV fluids, ceftriaxone, admitted to the [facility] floor and consult for pulmonary medicine and infectious disease. 09/09: Patient has been afebrile, heart rate 84, blood pressure 135/76, pulse ox 91% on 2 L nasal cannula. Repeat blood work reveals a VBC 2.7, hemoglobin 13.6, platelet count 146. D-dimer 0.89. Urine culture is in progress. Consult in place with pulmonary medicine and infectious disease. 09/10: Patient states that she is breathing well today. She states she has a little bit of cough but is improved from yesterday. She denies having any abdominal pain. No diarrhea. Patient has been afebrile, heart rate 69, blood pressure 126/74, pulse ox 94% on room air. The patient has been seen by infectious disease and pulmonary medicine. She has been cleared for discharge but there is concern about discharge planning and safety at home. Son is normally her caregiver but he is currently too weak to care for her. We'll plan to monitor patient one more night and plan for discharge tomorrow. 09/11/2020 Patient is currently lying in the bed comfortable awake alert and oriented 3. Saturating around low 90s on room air. Patient still feels very weak and lack of energy. She has been afebrile. Urine culture showed E. coli. Antibiotics changed to Levaquin as per sensitivity report. Previously laboratory data reviewed. Patient is being continued on dexamethasone and Lovenox and vitamin supplementation. 09/12/2020 Patient is currently resting in the bed comfortably. No complaints of chest pain or shortness of breath. Breathing status is better but patient states that she feels weak even with walking to the bathroom. PT OT will be consulted. Continued on antibiotics in the form of Levaquin. Patient is also on dex amethasone and Lovenox and vitamin supplementation. Anticipate discharge to home with physical therapy tomorrow. Current medications reviewed. 09/13/2020 Patient is seen and evaluated and follow-up with no acute overnight issues. Patient currently 94% on room air and in no acute respiratory distress. Patient is awaiting ECF placement for continued physical therapy. PT/OT following. Patient continues to be weak requiring assistance with gait and ADLs. Patient is maintained on oral Levaquin along with dexamethasone and Lovenox and will continue at this time. Infectious disease and pulmonary following. Review of systems: Constitutional: No reports of fatigue, fever, or chills Cardiovascular: No reports of chest pain or palpitations Respiratory: No reports of shortness of breath or cough GI: No reports of nausea, vomiting, or diarrhea : No reports of dysuria or retention Neurovascular: Reports weakness All medications have been reviewed Objective - Vital Signs Vital signs: Vital Signs Temp 97.4 F L 09/13/20 11:00 Pulse 99 09/13/20 11:00 Resp 18 09/13/20 11:00 BP 113/73 09/13/20 11:00 Pulse Ox 94 L 09/13/20 11:00 Intake & Output 09/12/20 09/13/20 09/13/20 18:59 06:59 18:59 Intake Total 400 790 Balance 400 790 Intake: Oral 400 790 Other: Voiding Method Bedside Commode Bedside Commode Bedside Commode Bedpan Bedpan Bedpan # Voids 1 - Exam Gen: This is an 89-year-old female sitting in bed, awake, alert and oriented 3, well-developed, well-nourished. HEENT: Head is atraumatic, normocephalic. Pupils equal, round. Sclerae is anicteric. Noted dry mucous membranes NECK: Supple. No JVD. No lymphadenopathy. No thyromegaly. LUNGS: Diminished breath sounds bilaterally with no wheezes, scattered rhonchi noted. No intercostal retractions. HEART: S1, S2 are muffled ABDOMEN: Soft. Bowel sounds are present. No masses. No tenderness. EXTREMITIES: No pedal edema. No calf tenderness. NEUROLOGICAL: Patient is awake, alert and oriented x3. Cranial nerves 2 through 12 are grossly intact. Diffusely weak - Labs CBC & Chem 7: 09/13/20 05:55 09/13/20 05:55 Labs: Abnormal Lab Results - Last 24 Hours (Table) 09/13/20 09/13/20 Range/Units 05:55 05:55 WBC 3.3 L (3.8-10.6) k/uL Lymphocytes # 0.8 L (1.0-4.8) k/uL BUN/Creatinine Ratio 35.00 H (12.00-20.00) Ratio Calcium 8.2 L (8.7-10.3) mg/dL Microbiology - Last 24 Hours (Table) 09/08/20 20:00 Blood Culture - Preliminary Blood No Growth after 96 hours Assessment and Plan Assessment: Covid 19 infection: Infectious disease and pulmonary following and patient is maintained on Lovenox, Decadron, vitamin C and D supplements along with zinc and will continue at this time Acute urinary tract infection with urine culture showing E. coli, currently on Levaquin Acute metabolic encephalopathy secondary to Covid 19 infection and acute urinary tract infection Hypertension: Home medications have been resumed Hypothyroidism Seasonal ALLERGIES Chronic pain, continue with fentanyl patch GI prophylaxis with Protonix DVT prophylaxis with Lovenox Plan: Continue with current medications. Infectious disease and pulmonary following. PT/OT following as patient continues to be weak. Case management and social work working on placement at an accepting ECF for continued PT/OT therapy. Patient is maintained on Levaquin for UTI with cultures finalized showing E. coli. Further recommendations to follow. Possible discharge in 24-48 hours.
[2020-09-13] MEDS ORDERED: LEVOFLOXACIN 500 MG TAB PO SCH (15:30)
--- NOTE | 2020-09-13 15:30 | P.PN ---
Subjective Progress Note Date: 09/13/20 HISTORY OF PRESENT ILLNESS This is an 89-year-old female presented to the hospital due to genera lized weakness and cough, lethargy and shortness of breath. She has a small amount of cough with clear phlegm. Symptoms started yesterday. She also has a touch of nausea. No diarrhea. She denies any dysuria. No chest pain. COVID- 19 was positive. Chest x-ray showed no acute abnormality. Patient was started on IV fluids, ceftriaxone and admitted to the [facility] floor. Patient has not experienced any hypoxia. Symptoms were onset of yesterday 09/10: Patient states that she is breathing well today. She continues to have a little cough but improved from yesterday. She denies having any abdominal pain, no diarrhea, no nausea or vomiting. Patient did not qualify for Remdesivir but continued on Lovenox, dexamethasone and vitamins. Patient is not requiring oxygen and pulse oxing 94% on room air, afebrile, heart rate 78, blood pressure 125/74. She was anxious to be discharged home today. 09/13: Patient states that she is feeling okay. Her breathing status is stable. She denies having any cough, no chest pain. She denies any nausea or vomiting. Pulse ox 94-96% on room air. She has been afebrile, heart rate 99, blood pressure 113/73. WBC 3.3, lymphocytes 0.8. Electrolytes normal. PHYSICAL EXAMINATION Gen: This is an 89-year-old female. She is resting bed appears to be comfortable. HEENT: Head is atraumatic, normocephalic. Pupils equal, round. Sclerae is ani cteric. NECK: Supple. No JVD. No lymphadenopathy. No thyromegaly. LUNGS: Clear to auscultation. No wheezes or rhonchi. No intercostal retractions. HEART: Regular rate and rhythm. No murmur. ABDOMEN: Soft. Bowel sounds are present. No masses. No tenderness. EXTREMITIES: No pedal edema. NEUROLOGICAL: Patient is awake, alert and oriented x3. ASSESSMENT COVID-19 infection PLAN Patient does not qualify for Remdesivir Continue Levaquin transitioned to oral Continue supplements with vitamin C, vitamin D and zinc Continue Lovenox and dexamethasone Patient is cleared from infectious disease for discharge home and plan for 5 days of Levaquin outpatient. The above dictated assessment and findings were discussed with Dr. Sarmiento. The impression and plan of care have been directed as dictated. Narcisa Belle nurse practitioner acting as scribe for Dr. Sarmiento. Objective - Vital Signs Vital signs: Vital Signs Temp 99.2 F 09/13/20 05:00 Pulse 63 09/13/20 05:00 Resp 16 09/13/20 05:00 BP 130/77 09/13/20 05:00 Pulse Ox 94 L 09/13/20 05:00 Intake & Output 09/12/20 09/13/20 09/13/20 18:59 06:59 18:59 Intake Total 400 790 Balance 400 790 Intake: Oral 400 790 Other: Voiding Method Bedside Commode Bedside Commode Bedside Commode Bedpan Bedpan Bedpan # Voids 1 - Labs CBC & Chem 7: 09/13/20 05:55 09/13/20 05:55 Labs: Abnormal Lab Results - Last 24 Hours (Table) 09/13/20 09/13/20 Range/Units 05:55 05:55 WBC 3.3 L (3.8-10.6) k/uL Lymphocytes # 0.8 L (1.0-4.8) k/uL BUN/Creatinine Ratio 35.00 H (12.00-20.00) Ratio Calcium 8.2 L (8.7-10.3) mg/dL Microbiology - Last 24 Hours (Table) 09/08/20 20:00 Blood Culture - Preliminary Blood No Growth after 96 hours
[2020-09-13] MEDS: LORazepam 0.5 MG TAB PO SCH (19:58)
[2020-09-13] MEDS: ASPIRIN 81 MG PO SCH (19:58)
[2020-09-13] MEDS: PREGABALIN 75 MG CAP PO SCH (19:58)
[2020-09-14 05:43] VITALS: TEMP 98
[2020-09-14] MEDS: LEVOTHYROXINE 125 MCG TAB PO SCH (06:11)
[2020-09-14] MEDS: ENOXAPARIN 40 MG/0.4 ML SYRINGE SQ SCH (09:08)
[2020-09-14] MEDS: DEXAMETHASONE SOD PHOSPHATE 10 MG/ML 1 ML VIAL IV SCH (09:08)
[2020-09-14] MEDS: PREGABALIN 75 MG CAP PO SCH (09:09)
[2020-09-14] MEDS: SENNOSIDES 8.6 MG TAB PO SCH (09:09)
[2020-09-14] MEDS: ZINC SULFATE 220 MG CAP PO SCH (09:09)
[2020-09-14] MEDS: ASCORBIC ACID 500 MG TAB PO SCH (09:10)
[2020-09-14] MEDS: LORATADINE 10 MG TAB PO SCH (09:10)
[2020-09-14] MEDS: lisinopriL 10 MG TAB PO SCH (09:10)
[2020-09-14] MEDS: amLODIPine 5 MG TAB PO SCH (09:11)
[2020-09-14] MEDS: PANTOPRAZOLE 40 MG TABLET PO SCH (09:11)
[2020-09-14] MEDS: ONDANSETRON ODT 4 MG TAB PO SCH (09:11)
[2020-09-14] MEDS: CHOLECALCIFEROL 400 UNIT TAB PO SCH (09:13)
[2020-09-14] MEDS: polyethylene glycoL 3350 17 GM POWD.PACK PO SCH (09:13)
[2020-09-14 11:03] VITALS: BP 102/70; PULSE 69; RESP 20
--- NOTE | 2020-09-14 11:16 | P.DS ---
Providers Date of admission: 09/08/20 17:04 Expected date of discharge: 09/14/20 Attending physician: Diamond Brice Consults: 09/08/20 17:04 Consult Physician Urgent Consulting Provider: Driss Vega Consult Reason/Comments: COVID 19 Do you want consulting provider notified?: Yes Consult Physician Urgent Consulting Provider: Martha Sarmiento Consult Reason/Comments: COVID 19 Do you want consulting provider notified?: Yes Primary care physician: Diamond Brice Hospital Course: Final diagnosis Covid 19 infection Acute urinary tract infection with urine culture showing E. coli Acute metabolic encephalopathy secondary to Covid 19 infection and acute urinary tract infection Hypertension Hypothyroidism Seasonal ALLERGIES Chronic pain, continue with fentanyl patch Gait dysfunction GI prophylaxis DVT prophylaxis Discharge disposition Patient is being discharged in a stable condition with guarded prognosis to [facility] for continued PT/OT therapy. Patient will follow-up with Dr. Brice in the outpatient setting upon discharge. Patient will continue on oral antibiotics in the form of Levaquin 500 mg daily for the next 5 days and then may discontinue. Patient is to continue with dexamethasone for the next 5 days to complete the course along with zinc supplements, and vitamin D and C supplements. Total time taken is greater than 35 minutes. History of present illness This is an 89-year-old female who was recently admitted with acute Covid 19 infection and was being closely monitored. Patient was brought here due to generalized weakness along with cough and cold-like symptoms. Multiple medical consultations including pulmonary and infectious disease were following. Patient was initiated on IV antibiotic therapy as she was also diagnosed with an acute urinary tract infection cultures finalizing showing E. coli. Patient will continue with oral Levaquin 500 mg daily for the next 5 days along with dexamethasone 6 mg daily to complete the course. Patient will continue zinc supplements along with vitamin C and D supplements. Patient was seen and evaluated by PT/OT therapy recommending subacute rehab for continued strength and mobility and will be going to [facility] today for continued PT/OT therapy. Will continue on a prednisone taper along with zinc, vitamin C and D supplements. Currently no reports of chest pain, worsening shortness of breath, or palpit ations. Patient is afebrile. No reports of nausea or vomiting and patient is tolerating diet. Patient will be going to [facility] today. On exam vital signs are stable. Temp is 98.0F, pulse is 69, respirations are 20, blood pressure is 102/70, oxygen saturation is 95% on room air. Cardio S1, S2 are muffled. Respiratory system shows diminished breath sounds at the bases with scattered rhonchi noted. Abdomen is soft and nontender. Nervous system shows diffuse weakness. Please refer to medication reconciliation sheet for a list of medications. Patient Condition at Discharge: Good Plan - Discharge Summary Discharge Rx Participant: Yes New Discharge Prescriptions: New Levofloxacin [Levaquin] 500 mg PO DAILY 5 Days #5 tab Dexamethasone [Decadron] 6 mg PO DAILY 5 Days #5 tablet Lidocaine 4% Cream [Lmx 4] 1 applic TOPICAL Q4H PRN applic PRN Reason: Pain Pregabalin [Lyrica] 75 mg PO BID #6 cap polyethylene glycoL 3350 [Miralax] 17 gm PO DAILY powd.pack amLODIPine [Norvasc] 5 mg PO DAILY tab Zinc Sulfate [Orazinc] 220 mg PO DAILY cap Pantoprazole [Protonix] 40 mg PO AC-BRKFST tablet. Sennosidewaylon [Senokot] 8.6 mg PO BID tab Ascorbic Acid [Vitamin C] 500 mg PO DAILY tab Cholecalciferol [Vitamin D3] 400 unit PO DAILY tab lisinopriL [Zestril] 10 mg PO DAILY tab Continue Aspirin EC [Ecotrin Low Dose] 81 mg PO HS Ondansetron Odt [Zofran ODT] 4 mg PO DAILY Cetirizine HCl [Zyrtec] 10 mg PO DAILY Levothyroxine Sodium [Synthroid] 125 mcg PO DAILY LORazepam [Ativan] 0.5 mg PO HS #2 tab fentaNYL 75MCG/HR PATCH [Duragesic 75MCG/HR] 1 patch TRANSDERM Q72H #1 patch Discontinued amLODIPine BESYLATE/BENAZEPRIL [Lotrel 5-10 MG] 1 cap PO DAILY Discharge Medication List Aspirin EC [Ecotrin Low Dose] 81 mg PO HS 09/08/20 [History] Cetirizine HCl [Zyrtec] 10 mg PO DAILY 09/08/20 [History] Levothyroxine Sodium [Synthroid] 125 mcg PO DAILY 09/08/20 [History] Ondansetron Odt [Zofran ODT] 4 mg PO DAILY 09/08/20 [History] Levofloxacin [Levaquin] 500 mg PO DAILY 5 Days #5 tab 09/13/20 [Rx] Ascorbic Acid [Vitamin C] 500 mg PO DAILY tab 09/14/20 [Rx] Cholecalciferol [Vitamin D3] 400 unit PO DAILY tab 09/14/20 [Rx] Dexamethasone [Decadron] 6 mg PO DAILY 5 Days #5 tablet 09/14/20 [Rx] LORazepam [Ativan] 0.5 mg PO HS #2 tab 09/14/20 [Rx] Lidocaine 4% Cream [Lmx 4] 1 applic TOPICAL Q4H PRN applic 09/14/20 [Rx] Pantoprazole [Protonix] 40 mg PO AC-BRKFST tablet.dr 09/14/20 [Rx] Pregabalin [Lyrica] 75 mg PO BID #6 cap 09/14/20 [Rx] Sennosides [Senokot] 8.6 mg PO BID tab 09/14/20 [Rx] Zinc Sulfate [Orazinc] 220 mg PO DAILY cap 09/14/20 [Rx] amLODIPine [Norvasc] 5 mg PO DAILY tab 09/14/20 [Rx] fentaNYL 75MCG/HR PATCH [Duragesic 75MCG/HR] 1 patch TRANSDERM Q72H #1 patch 09/14/20 [Rx] lisinopriL [Zestril] 10 mg PO DAILY tab 09/14/20 [Rx] polyethylene glycoL 3350 [Miralax] 17 gm PO DAILY powd.pack 09/14/20 [Rx] Follow up Appointment(s)/Referral(s): Diamond Brice MD [Primary Care Provider] - 1-2 days [facility], [NON-STAFF] - 1 Week Activity/Diet/Wound Care/Special Instructions: Patient is going to [facility] for continued rehab Activity as tolerated Continue current diet Continue with antibiotics for the next 5 days and then may discontinue Continue dexamethasone for the next 5 days and then may discontinue Follow-up with primary care provider upon discharge Discharge Disposition: TRANSFER TO SNF/F
--- NOTE | 2020-09-14 14:35 | P.PN ---
Subjective Progress Note Date: 09/14/20 HISTORY OF PRESENT ILLNESS This is an 89-year-old female presented to the hospital due to genera lized weakness and cough, lethargy and shortness of breath. She has a small amount of cough with clear phlegm. Symptoms started yesterday. She also has a touch of nausea. No diarrhea. She denies any dysuria. No chest pain. COVID- 19 was positive. Chest x-ray showed no acute abnormality. Patient was started on IV fluids, ceftriaxone and admitted to the [facility] floor. Patient has not experienced any hypoxia. Symptoms were onset of yesterday 09/10: Patient states that she is breathing well today. She continues to have a little cough but improved from yesterday. She denies having any abdominal pain, no diarrhea, no nausea or vomiting. Patient did not qualify for Remdesivir but continued on Lovenox, dexamethasone and vitamins. Patient is not requiring oxygen and pulse oxing 94% on room air, afebrile, heart rate 78, blood pressure 125/74. She was anxious to be discharged home today. 09/13: Patient states that she is feeling okay. Her breathing status is stable. She denies having any cough, no chest pain. She denies any nausea or vomiting. Pulse ox 94-96% on room air. She has been afebrile, heart rate 99, blood pressure 113/73. WBC 3.3, lymphocytes 0.8. Electrolytes normal. 09/14: Patient denies having any chest pain, no nausea vomiting. No diarrhea. No abdominal pain. Patient has been afebrile, heart rate 69, blood pressure 102/70, pulse ox 95% on room air. Patient is scheduled for discharge to [facility] today. PHYSICAL EXAMINATION Gen: This is an 89-year-old female. She is resting bed appears to be comfortable. HEENT: Head is atraumatic, normocephalic. Pupils equal, round. Sclerae is anicteric. NECK: Supple. No JVD. No lymphadenopathy. No thyromegaly. LUNGS: Clear to auscultation. No wheezes or rhonchi. No intercostal retractions. HEART: Regular rate and rhythm. No murmur. ABDOMEN: Soft. Bowel sounds are present. No masses. No tenderness. EXTREMITIES: No pedal edema. NEUROLOGICAL: Patient is awake, alert and oriented x3. ASSESSMENT COVID-19 infection PLAN Patient does not qualify for Remdesivir Continue Levaquin transitioned to oral Continue supplements with vitamin C, vitamin D and zinc Continue Lovenox and dexamethasone Patient is cleared from infectious disease for discharge and plan for 5 days of Levaquin outpatient. The above dictated assessment and findings were discussed with Dr. Sarmiento. The impression and plan of care have been directed as dictated. Narcisa Belle nurse practitioner acting as scribe for Dr. Sarmiento. Objective - Vital Signs Vital signs: Vital Signs Temp 98.0 F 09/14/20 05:00 Pulse 69 09/14/20 11:00 Resp 20 09/14/20 11:00 BP 102/70 09/14/20 11:00 Pulse Ox 95 09/14/20 11:00 Intake & Output 09/13/20 09/14/20 09/14/20 18:59 06:59 18:59 Intake Total 590 Balance 590 Intake: Oral 590 Other: Voiding Method Bedside Commode Bedside Commode Bedside Commode Bedpan Bedpan Bedpan # Voids 2 2 # Bowel Movements 1 - Labs CBC & Chem 7: 09/13/20 05:55 09/13/20 05:55 Labs: Microbiology - Last 24 Hours (Table) 09/08/20 20:00 Blood Culture - Preliminary Blood No Growth after 120 hours
== END 2020-09-14 15:09 | DRG 177 ==
LOC: EC 13:34 → 4SSUR 17:04 → 6NMEDSUR 23:12
PROVIDERS: ADMIT Internal Medicine; ATTEND Internal Medicine
DX: U07.1 COVID-19 (principal); G93.41 Metabolic encephalopathy; N39.0 Urinary tract infection, site not specified; J30.2 Other seasonal allergic rhinitis; K59.09 Other constipation; M19.90 Unspecified osteoarthritis, unspecified site; K21.9 Gastro-esophageal reflux disease without esophagitis; R26.9 Unspecified abnormalities of gait and mobility; I83.90 Asymptomatic varicose veins of unspecified lower extremity; B96.20 Unspecified Escherichia coli [E. coli] as the cause of diseases classified elsewhere; E03.9 Hypothyroidism, unspecified; G89.4 Chronic pain syndrome; I10 Essential (primary) hypertension; Z79.890 Hormone replacement therapy; Z79.899 Other long term (current) drug therapy; Z80.1 Family history of malignant neoplasm of trachea, bronchus and lung; Z87.891 Personal history of nicotine dependence; Z96.651 Presence of right artificial knee joint; Z90.89 Acquired absence of other organs; M54.2 Cervicalgia; M54.9 Dorsalgia, unspecified; Z98.42 Cataract extraction status, left eye; Z98.41 Cataract extraction status, right eye; Z79.891 Long term (current) use of opiate analgesic; Z79.82 Long term (current) use of aspirin; Z91.041 Radiographic dye allergy status
CPT/HCPCS: 36415; 71046; 80048; 80053; 81001; 83605; 83735; 84484; 85025; 85379; 85610; 85730; 86140; 87040; 87077; 87086; 87186; 87635; 93005; 96361; 96374; 99285